=== PATIENT | male | born 1990 | race Caucasian/White ===

== ENCOUNTER 2021-02-03 20:39 | Inpatient (IN) | payer BC, OTHER ==
--- NOTE | 2021-02-03 21:28 | ED ---
General Adult HPI - General Source: police Mode of arrival: ambulatory Limitations: no limitations <Zeeshan Sims - Last Filed: 02/03/21 21:28> - General Source: RN notes reviewed, old records reviewed <Rehan Tripp - Last Filed: 02/04/21 04:05> - General Chief complaint: Psychiatric Symptoms Stated complaint: Pickup Order Time Seen by Provider: 02/03/21 21:05 - History of Present Illness Initial comments: Dictation was produced using [employer] dictation software. please excuse any grammatical, word or spelling errors. Chief Complaint: 31-year-old male brought in for apple picker order History of Present Illness: 31-year-old male he was brought to the emergency department for apple picker order. According to apple picker order patient has been showing signs of psychosis and not taking his medications as prescribed. Patient denies any of this. He states that his parents have been throwing with his medications. Denies any suicidal or homicidal ideation. Patient has no complaints at this time. The ROS documented in this emergency department record has been reviewed and confirmed by me. Those systems with pertinent positive or negative responses have been documented in the HPI. All other systems are other negative and/or noncontributory. PHYSICAL EXAM: General Impression: Alert and oriented x3, not in acute distress HEENT: Normocephalic atraumatic, extra-ocular movements intact, pupils equal and reactive to light bilaterally, mucous membranes moist. Cardiovascular: Heart regular rate and rhythm Chest: Able to complete full sentences, no retractions, no tachypnea Abdomen: abdomen soft, non-tender, non-distended, no organomegaly Musculoskeletal: Pulses present and equal in all extremities, no peripheral edema Motor: no focal deficits noted Neurological: CN II-XII grossly intact, no focal motor or sensory deficits noted Skin: Intact with no visualized rashes Psych: Normal affect and mood ED course: 31-year-old male presents to the emergency department for apple picker order signs upon arrival are within acceptable limits. Patient is well- appearing. He is pleasant has no medical complaints. Patient medically cleared for EPS evaluation. (Zeeshan Sims) - Related Data Allergies Allergy/AdvReac Type Severity Reaction Status Date / Time No Known Allergies Allergy Verified 02/03/21 22:04 Review of Systems ROS Other: All systems not noted in ROS Statement are negative. <BethanyVanessamai Pittman - Last Filed: 02/03/21 21:28> ROS Other: All systems not noted in ROS Statement are negative. <Rehan Tripp - Last Filed: 02/04/21 04:05> ROS Statement: Those systems with pertinent positive or pertinent negative responses have been documented in the HPI. Past Medical History Past Medical History: No Reported History History of Any Multi-Drug Resistant Organisms: MRSA Date of last positivie culture/infection: 01/29/2010 MDRO Source:: abd Past Surgical History: Back Surgery Past Psychological History: ADD/ADHD Smoking Status: Current every day smoker Past Alcohol Use History: Occasional Past Drug Use History: Marijuana <BethanyVanessamai Pittman - Last Filed: 02/03/21 21:28> General Exam Limitations: no limitations <BethanyVanessamai Pittman - Last Filed: 02/03/21 21:28> General appearance: alert, in no apparent distress, anxious Head exam: Present: atraumatic, normocephalic, normal inspection Eye exam: Present: normal appearance, PERRL, EOMI. Absent: scleral icterus, conjunctival injection, periorbital swelling ENT exam: Present: normal exam, mucous membranes moist Neck exam: Present: normal inspection. Absent: tenderness, meningismus, lymphadenopathy Respiratory exam: Present: normal lung sounds bilaterally. Absent: respiratory distress, wheezes, rales, rhonchi, stridor Cardiovascular Exam: Present: normal rhythm, tachycardia, normal heart sounds. Absent: systolic murmur, diastolic murmur, rubs, gallop, clicks GI/Abdominal exam: Present: soft, normal bowel sounds. Absent: distended, tenderness, guarding, rebound, rigid Extremities exam: Present: normal inspection, full ROM, normal capillary refill. Absent: tenderness, pedal edema, joint swelling, calf tenderness Back exam: Present: normal inspection Neurological exam: Present: alert, oriented X3, CN II-XII intact Psychiatric exam: Present: normal affect, normal mood Skin exam: Present: warm, dry, intact, normal color. Absent: rash <Rehan Tripp - Last Filed: 02/04/21 04:05> Course <Rehan Tripp - Last Filed: 02/04/21 04:05> Vital Signs 02/03/21 20:44 Temperature 99.1 F Pulse Rate 103 H Respiratory 18 Rate Blood Pressure 143/84 O2 Sat by Pulse 98 Oximetry - Reevaluation(s) Reevaluation #1: 02/04/21 04:05 Medical records reviewed (Rehan Tripp) Reevaluation #2: 02/04/21 04:05 Medically clear for psychiatric evaluation (Rehan Tripp) Reevaluation #3: 02/04/21 04:05 Meets inpatient criteria certification is filled out (Rehan Tripp) Medical Decision Making <Rehan Tripp - Last Filed: 02/04/21 04:05> - Medical Decision Making 31 male to be admitted for psychiatric evaluation and treatment (Rehan Tripp) Disposition <Zeeshan Sims - Last Filed: 02/03/21 21:28> Is patient prescribed a controlled substance at d/c from ED?: No <Rehan Tripp - Last Filed: 02/04/21 04:05> Clinical Impression: Acute psychosis Disposition: ADMITTED IP TO THIS HOSP Condition: Fair Referrals: Nonstaff,Physician [Primary Care Provider] - 1-2 days
[2021-02-03] MEDS ORDERED: IBUPROFEN 800 MG TAB PO STA (22:54)
[2021-02-04] MEDS ORDERED: LORazepam 1 MG TAB PO STA (03:03)
[2021-02-04] MEDS ORDERED: QUEtiapine 50 MG TAB PO STA (03:03)
[2021-02-04] MEDS ORDERED: HYDROcodone/APAP 7.5-325MG 1 EACH TAB PO ONE (04:16)
[2021-02-04] MEDS ORDERED: MAG HYDROX/AL HYDROX/SIMETH 30 ML CUP PO PRN (04:41)
[2021-02-04] MEDS ORDERED: MAGNESIUM HYDROXIDE 2,400 MG/10 ML CUP PO PRN (04:41)
[2021-02-04] MEDS ORDERED: LORazepam 2 MG/ML INJ IM PRN (04:45)
[2021-02-04] MEDS ORDERED: HALOPERIDOL LACTATE 5 MG/ML 1 ML VIAL IM PRN (04:46)
[2021-02-04 05:35] VITALS: RESP 16
[2021-02-04] MEDS: NICOTINE 14MG/24HR PATCH TRANSDERM SCH (09:57)
[2021-02-04] MEDS: LORazepam 1 MG TAB PO PRN ×2 (09:58→19:25)
[2021-02-04] MEDS: ACETAMINOPHEN TAB 325 MG TAB PO PRN ×2 (09:58→22:22)
[2021-02-04 10:06] LABS: Basophils # (A) 0.1 k/uL (0-0.2); Basophils % (A) 1 %; Eosinophils # (A) 0.3 k/uL (0-0.7); Eosinophils % (A) 3 %; HCT 45.1 % (39.0-53.0); HGB 14.7 gm/dL (13.0-17.5); Lymphocytes # (A) 3.2 k/uL (1.0-4.8); Lymphocytes % (A) 32 %; MCH 28.3 pg (25.0-35.0); MCHC 32.7 g/dL (31.0-37.0); MCV 86.6 fL (80.0-100.0); Monocytes # (A) 0.6 k/uL (0-1.0); Monocytes % (A) 6 %; Neutrophils # (A) 5.8 k/uL (1.3-7.7); Neutrophils % (A) 57 %; Platelet Count 330 k/uL (150-450); RBC 5.21 m/uL (4.30-5.90); RDW 13.2 % (11.5-15.5)
[2021-02-04 10:28] LABS: ALT 36 U/L (4-49); AST 39 U/L (17-59); African American GFR (CKD) >90 (>60 ml/min/1.73 sqM); Albumin 4.2 g/dL (3.5-5.0); Alkaline Phosphatase 68 U/L (38-126); Anion Gap 7 mmol/L; Blood Urea Nitrogen 9 mg/dL (9-20); Calcium 9.5 mg/dL (8.4-10.2); Carbon Dioxide 26 mmol/L (22-30); Chloride 107 mmol/L (98-107); Glucose 99 mg/dL (74-99); Non-African American GFR(CKD) >90 (>60 ml/min/1.73 sqM); Potassium 4.2 mmol/L (3.5-5.1); Sodium 140 mmol/L (137-145); Total Bilirubin 0.6 mg/dL (0.2-1.3); Total Protein 6.8 g/dL (6.3-8.2)
[2021-02-04] MEDS: ARIPiprazole 5 MG TAB PO SCH (14:46)
--- NOTE | 2021-02-04 15:04 | P.HPMEDMHU ---
<Ramsey Lemus - Last Filed: 02/04/21 14:58> History of Present Illness H&P Date: 02/04/21 History of Presenting Illness: Patient is a 31-year-old male with a past medical history of nicotine dependence, chronic back pain, ADHD, depression, and anxiety. Patient currently admitted to inpatient mental health unit for reports of exhibiting signs of psychosis. Patient currently denies having any complaints at this time including headache, lightheadedness, dizziness, changes in vision or hearing, chest pain or palpitations, shortness of breath, abdominal pain, nausea, vomiting, changes in appetite, numbness/tingling/weakness in his extremities, visual/auditory/tactile hallucinations, or experiencing any suicidal or homicidal ideations. Review of systems: Pertinent positives and negatives as discussed in HPI, a complete review of systems was performed and all other systems are negative. Physical exam: General: non toxic, no distress, appears at stated age Derm: warm, dry Head: atraumatic, normocephalic, symmetric Eyes: EOMI, no lid lag, anicteric sclera Mouth: no lip lesion, mucus membranes moist Cardiovascular: S1-S2 normal with regular rate and rhythm. No murmurs, gallops, or rubs noted. Posterior tibial pulses palpated bilaterally. Cap refill less than 2 seconds. Lungs: Respirations even, regular, and unlabored on room air. Lungs clear to auscultation bilaterally with no wheezes, rhonchi, or rales noted. No accessory muscle usage. Abdominal: soft, nontender to palpation, no guarding, no appreciable organomegaly Ext: no gross muscle atrophy, no edema, no contractures Neuro: GCS 15. Speech clear. CN II-XI grossly intact, no focal neuro deficits Psych: Alert, oriented, appropriate affect Assessment and Plan of Care: Chronic back pain with sciatica status post lumbar surgery -Symptomatic care and pain management. Motrin and/or Tylenol as needed for mild pain/discomfort. Nicotine dependence -Patient reports long-standing history of and current use of tobacco products reportedly smoking one pack of cigarettes daily 13 years. -Patient to continue to receive education and encouragement on the importance of smoking cessation and risks of continued use. -Nicotine patch. Psychosis with history of ADHD, depression, and anxiety -Management per primary admitting psychiatric team. Thank you for allowing us to participate in the care of this pleasant patient. Do not hesitate to contact us with questions. Someone can be reached from the [facility] hospitalist group all hours of the day at [phone] or via [employer]. Past Medical History Past Medical History: No Reported History History of Any Multi-Drug Resistant Organisms: MRSA Date of last positivie culture/infection: 01/29/2010 MDRO Source:: abd Past Surgical History: Back Surgery Smoking Status: Current every day smoker Medications and Allergies Home Medications Medication Instructions Recorded Confirmed Type Buprenorphine HCl/Naloxone HCl 0.5 film SL DAILY 02/03/21 02/04/21 History [Suboxone 8 mg-2 mg Sl Film] Dextroamphetamine/Amphetamine 30 mg PO DAILY 02/03/21 02/04/21 History [Adderall Xr] FLUoxetine HCL [PROzac] 20 mg PO DAILY 02/03/21 02/04/21 History QUEtiapine FUMARATE [SEROquel] 50 mg PO HS 02/03/21 02/04/21 History Allergies Allergy/AdvReac Type Severity Reaction Status Date / Time No Known Allergies Allergy Verified 02/04/21 05:32 Physical Exam Vitals: Vital Signs Temp Pulse Pulse Resp BP BP Pulse Ox 02/04/21 05:26 97.9 F 83 16 141/101 02/03/21 20:44 99.1 F 103 H 18 143/84 98 Intake and Output 02/03/21 02/04/21 02/04/21 22:59 06:59 14:59 Other: Weight 108.862 kg 110.677 kg Cranial Nerve Examination - Cranial Nerves Cranial Nerve II- Optic: Intact Cranial Nerve III- Oculomotor: Intact Cranial Nerve IV- Trochlear: Intact Cranial Nerve V- Trigeminal: Intact Cranial Nerve - Abducens: Intact Cranial Nerve VII- Facial: Intact Cranial Nerve VIII- Auditory: Intact Cranial Nerve IX- Glossopharyngeal: Intact Cranial Nerve X- Vagus: Intact Cranial Nerve XI- Accessory: Intact Cranial Nerve XII- Hypoglossal: Intact Results CBC & Chem 7: 02/04/21 09:32 02/04/21 09:32 <Meseret Salas - Last Filed: 02/04/21 17:10> History of Present Illness Ramsey Lemus NP rendered care for this patient independently, reviewed the findings and plan as documented in the note above. I did not physically speak with or examine the patient on this date. Physical Exam Osteopathic Statement: *. No significant issues noted on an osteopathic structural exam other than those noted in the History and Physical/Consult. Vitals: Vital Signs Temp Pulse Pulse Resp BP BP Pulse Ox 02/04/21 05:26 97.9 F 83 16 141/101 02/03/21 20:44 99.1 F 103 H 18 143/84 98 Intake and Output 02/04/21 02/04/21 02/04/21 06:59 14:59 22:59 Other: Weight 110.677 kg Results CBC & Chem 7: 02/04/21 09:32 02/04/21 09:32
--- NOTE | 2021-02-04 15:15 | P.HP ---
Psychiatric H&P - . H&P Date: 02/04/21 History & Physical: Allergies Allergy/AdvReac Type Severity Reaction Status Date / Time No Known Allergies Allergy Verified 02/04/21 05:32 Vital Signs Temp 97.9 F 02/04/21 05:26 Pulse 83 02/04/21 05:26 Resp 16 02/04/21 05:26 BP 141/101 02/04/21 05:26 Pulse Ox 98 02/03/21 20:44 Intake & Output 02/03/21 02/04/21 02/04/21 18:59 06:59 18:59 Weight 110.677 kg Laboratory Last Values WBC 10.0 k/uL (3.8-10.6) 02/04/21 09:32 RBC 5.21 m/uL (4.30-5.90) 02/04/21 09:32 Hgb 14.7 gm/dL (13.0-17.5) 02/04/21 09:32 Hct 45.1 % (39.0-53.0) 02/04/21 09:32 MCV 86.6 fL (80.0-100.0) 02/04/21 09:32 MCH 28.3 pg (25.0-35.0) 02/04/21 09:32 MCHC 32.7 g/dL (31.0-37.0) 02/04/21 09:32 RDW 13.2 % (11.5-15.5) 02/04/21 09:32 Plt Count 330 k/uL (150-450) 02/04/21 09:32 MPV 7.0 02/04/21 09:32 Neutrophils % 57 % 02/04/21 09:32 Lymphocytes % 32 % 02/04/21 09:32 Monocytes % 6 % 02/04/21 09:32 Eosinophils % 3 % 02/04/21 09:32 Basophils % 1 % 02/04/21 09:32 Neutrophils # 5.8 k/uL (1.3-7.7) 02/04/21 09:32 Lymphocytes # 3.2 k/uL (1.0-4.8) 02/04/21 09:32 Monocytes # 0.6 k/uL (0-1.0) 02/04/21 09:32 Eosinophils # 0.3 k/uL (0-0.7) 02/04/21 09:32 Basophils # 0.1 k/uL (0-0.2) 02/04/21 09:32 Sodium 140 mmol/L (137-145) 02/04/21 09:32 Potassium 4.2 mmol/L (3.5-5.1) 02/04/21 09:32 Chloride 107 mmol/L (98-107) 02/04/21 09:32 Carbon Dioxide 26 mmol/L (22-30) 02/04/21 09:32 Anion Gap 7 mmol/L 02/04/21 09:32 BUN 9 mg/dL (9-20) 02/04/21 09:32 Creatinine 0.86 mg/dL (0.66-1.25) 02/04/21 09:32 Est GFR (CKD-EPI)AfAm >90 (>60 ml/min/1.73 sqM) 02/04/21 09:32 Est GFR (CKD-EPI)NonAf >90 (>60 ml/min/1.73 sqM) 02/04/21 09:32 Glucose 99 mg/dL (74-99) 02/04/21 09:32 Calcium 9.5 mg/dL (8.4-10.2) 02/04/21 09:32 Total Bilirubin 0.6 mg/dL (0.2-1.3) 02/04/21 09:32 AST 39 U/L (17-59) 02/04/21 09:32 ALT 36 U/L (4-49) 02/04/21 09:32 Alkaline Phosphatase 68 U/L (38-126) 02/04/21 09:32 Total Protein 6.8 g/dL (6.3-8.2) 02/04/21 09:32 Albumin 4.2 g/dL (3.5-5.0) 02/04/21 09:32 TSH 3.130 mIU/L (0.465-4.680) 02/04/21 09:32 Coronavirus (PCR) Not Detected (Not Detectd) 02/04/21 03:05 02/04/21 14:54 IDENTIFYING DATA: Patient is a 31-year-old male who currently lives with his parents however is and his and him are and she lives in [place]. They have no kids together. HPI: Patient presented to the hospital yesterday on a petition by patient's parents were claiming the patient has been paranoid and not taking his bipolar medications and also has kicked his aren't of their house and also has been recently fired from his job. Patient was admitted involuntarily on petition and certification to the mental health unit and seen today for evaluation. Patient appeared to be calm at first during the interview however spoke of his parents "believing that I'm crazy". He states that he was feeling paranoid at home and believes that "people watching house". He claims that now he is doing better overall and claims that he slept better last night. He states that he can go several nights without sleeping and has been trying to work hard on his projects at home and to get his [employer] business working. He states that he is taking Adderall daily for his ADHD. He claims that he has had ADHD since age 16. He claims that he has had a history of manic episodes in the past. He believes that he is not bipolar unit he has been diagnosed this and that in the past. He claims that he was on Depakote for a while several months ago however stopped. His insight is fairly poor into his condition and poor judgment. He states that his appetite is poor. He claims that he has had "visions" however is denying any auditory or visual hallucinations. He states that his mood is "good" and denying any depression today. He admits to mild anxiety. Patient denies any suicidal or homicidal ideations intent or plan. Patient denies any flight of ideas racing thoughts and increased in goal directed behavior. Patient admits to using alcohol occasionally, marijuana daily. He states that he smokes cigarettes daily. PAST PSYCHIATRIC HISTORY: Patient has a history of ADHD and bipolar disorder. [Patient denies being on any psychiatric medications currently except for Adderall for his ADHD.] [Patient denies any previous psychiatric hospitalizations.] He states that he used to see a psychiatrist Dr. Orourke however he claims that he has not been following up with him any longer. [Chino howard denies any history of suicide attempts in the past.] PMH: He claims that he has had back surgery in the past. ALLERGIES: as per EMR CHEMICAL DEPENDENCY HISTORY: as per HPI FAMILY PSYCHIATRIC/SUBSTANCE USE HISTORY: He states that his grandmother has bipolar disorder. He claims that his father has depression. SOCIAL HISTORY: Patient was born and raised in [place] and also lived in [place]. He claims that he is currently from his who lives in [place]. He states that he currently lives with his parents in the house. He states that he has no kids. He claims that he has no legal history. He has 2 years of college after high school. MENTAL STATUS EXAM: General Appearance: Patient appears to be tall, multiple tattoos, stated age is alert, [directable, and attempts to cooperate]. Patient appears to have fair hygiene and grooming. Behavior: Patient is seated without any agitated behavior. Superficial. Argumentative at times. Speech: Patient's speech is [fluent and nonpressured.] Mood/Affect: Patient reports their mood is "okay", affect is congruent and constricted. Suicidality/Homicidality: Patient denies having any homicidal ideation intent or plan. [Denies any suicidal ideations intent or plan] Perceptions: Patient denies any visual hallucinations [and denies any auditory hallucinations] Though content/process: Minimizes his psychiatric symptoms. Poor insight and judgment. Illogical at times. Paranoia. Memory and concentration: AOX3, grossly intact for the purposes of this session. Can spell "WORLD" backwards Judgment and insight: [poor] STRENGTHS/WEAKNESSES: strength is that patient is [resilient]. Weakness is that patient [has poor judgment and is impulsive] INTELLECT: [average] IMPRESSIONS: Bipolar disorder with psychotic features Cannabis use disorder History of ADHD Nicotine dependence PLAN: -Patient is admitted under involuntary status to MHU for stabilization of psychiatric symptoms and safety. Patient has not signed [adult voluntary form and] [medication consent] and is placed in patient's chart. [A second certification was completed and along with petition will be filed for court.] -Medications : Will start patient on Abilify 2.5 mg daily for mood stabilization. Trazodone 50 mg daily at bedtime for insomnia/mood. BuSpar 10 mg twice a day for anxiety. -Ativan [and Haldol] PRN for agitation/aggression [-Patient was counselled on substance abuse and desired to cut back on use] -Patient was informed of the risks, benefits and side effects of the medication and patient verbally consented to taking the medications. Patient signed med consent form and was placed in chart. -Internal Medicine consult to perform medical evaluation and physical. -NRT - nicotine patch -SW on board for discharge planning. Encourage patient to participate in groups to work on coping skills. Will await deferral and court date.
[2021-02-04] MEDS: IBUPROFEN 800 MG TAB PO PRN (19:22)
[2021-02-04 19:39] LABS: Hemoglobin A1C 5.5 % (4.0-6.0)
[2021-02-04] MEDS ORDERED: traZODone HCL 50 MG TAB PO SCH (21:00)
[2021-02-04] MEDS ORDERED: QUEtiapine 25 MG TAB PO SCH (21:00)
[2021-02-04] MEDS: busPIRone HCl 10 MG TAB PO SCH (21:08)
[2021-02-05] MEDS: IBUPROFEN 800 MG TAB PO PRN ×2 (05:25→18:18)
[2021-02-05] MEDS: LORazepam 1 MG TAB PO PRN ×3 (05:25→21:40)
[2021-02-05] MEDS: NICOTINE 14MG/24HR PATCH TRANSDERM SCH (07:51)
[2021-02-05] MEDS: ARIPiprazole 5 MG TAB PO SCH (07:51)
[2021-02-05] MEDS: busPIRone HCl 10 MG TAB PO SCH ×2 (07:51→20:03)
[2021-02-05] MEDS ORDERED: IBUPROFEN 600 MG TAB PO PRN (10:31)
--- NOTE | 2021-02-05 10:35 | P.PN ---
Progress Note - Text Progress Note Date: 02/05/21 Interval History: Patient was seen wandering the hallways and was directable and agreeable to sp eak with health science writer in the office. Patient appears to be more cooperative today with health science writer. He was fairly appropriately during conversation. He was fairly preoccupied with his medications and asked several questions about it. She believes that the Abilify has been helping with his mood and keeping stable and claims that he will be taking it when he is discharged. He states that he is not feeling depressed today and claims that his anxiety is improved since yesterday. He states that he was not able to sleep well on the trazodone and was requesting to have it changed. He states that he was on Benadryl before for sleep and found it to work. He was complaining of pain and was requesting to be placed back on [place]. He states that he has a fair appetite. At this time patient denies any suicidal or homical ideations, intent or plan. Patient denies any auditory, visual hallucinations and denies any paranoia or delusions. Patient denies any side effects from the medications and has been compliant with meds. Mental Status Exam: General Appearance: Patient appears to be tall, multiple tattoos, stated age is alert, directable, and attempts to cooperate. Patient appears to have fair hy giene and grooming. Behavior: Patient is seated without any agitated behavior. More cooperative today Speech: Patient's speech is fluent and nonpressured. Mood/Affect: Patient reports their mood is "a bit better", affect is congruent and constricted. Suicidality/Homicidality: Patient denies having any homicidal ideation intent or plan. Denies any suicidal ideations intent or plan Perceptions: Patient denies any visual hallucinations and denies any auditory hallucinations Though content/process: Insight improving. More logical today. Not endorsing any paranoia today. Memory and concentration: AOX3, grossly intact for the purposes of this session. Judgment and insight: improving mildly Assessment Bipolar disorder with psychotic features Cannabis use disorder History of ADHD Nicotine dependence Plan: -Patient continues to meet criteria for inpatient psychiatric admission for symptom stabilization and safety. Patient has not signed adult voluntary form and was placed in patient's chart. -Medications: Increased Abilify to 5 mg for mood stabilization. Discontinue trazodone and replaced with Benadryl 50 mg daily at bedtime for insomnia. Continue with BuSpar 10 mg twice a day for anxiety. -When necessary Ativan and Haldol for agitation/aggression. -NRT - nicotine patch -BASHIR on board for discharge planning. Encouraged the patient to participate in milieu. Currently awaiting deferral with workers compensation attorney and court date. Likely discharge once patient signs deferral
[2021-02-05] MEDS: HYDROcodone/APAP 7.5-325MG 1 EACH TAB PO PRN (11:05)
[2021-02-05] MEDS: ACETAMINOPHEN TAB 325 MG TAB PO PRN (20:04)
[2021-02-05] MEDS ORDERED: QUEtiapine 50 MG TAB PO SCH (21:00)
[2021-02-05] MEDS ORDERED: diphenhydrAMINE 50 MG CAP PO SCH (21:00)
[2021-02-06] MEDS: IBUPROFEN 800 MG TAB PO PRN ×2 (00:38→06:45)
[2021-02-06 01:06] VITALS: BP 129/74; PULSE 84; TEMP 96.8
[2021-02-06] MEDS: LORazepam 1 MG TAB PO PRN (06:45)
[2021-02-06] MEDS: NICOTINE 14MG/24HR PATCH TRANSDERM SCH (08:22)
[2021-02-06] MEDS: HYDROcodone/APAP 7.5-325MG 1 EACH TAB PO PRN (08:23)
[2021-02-06] MEDS: busPIRone HCl 10 MG TAB PO SCH (08:23)
[2021-02-06] MEDS ORDERED: ARIPiprazole 5 MG TAB PO SCH (09:00)
--- NOTE | 2021-02-06 09:42 | P.DS ---
Providers Date of admission: 02/04/21 04:36 Expected date of discharge: 02/06/21 Attending physician: Anson Stokes MD Consults: 02/04/21 04:41 Consult Physician Routine Consulting Provider: [facility] Consult Reason/Comments: For H & P for Medical Follow Up Do you want consulting provider notified?: Yes Primary care physician: Physician Nonstaff - Discharge Diagnosis(es) (1) Bipolar disorder with psychotic features Current Visit: Yes Status: Acute Priority: High (2) Cannabis use disorder, mild, abuse Current Visit: Yes Status: Acute Priority: Medium (3) History of ADHD Current Visit: Yes Status: Acute Priority: Low (4) Nicotine dependence Current Visit: Yes Status: Acute Priority: Medium Hospital Course: Admission HPI: Admission note was completed by card writer hand " Patient is a 31-year-old male who currently lives with his parents however is and his and him are and she lives in [place]. They have no kids together. Patient presented to the hospital yesterday on a petition by patient's parents were claiming the patient has been paranoid and not taking his bipolar medications and also has kicked his aren't of their house and also has been recently fired from his job. Patient was admitted involuntarily on petition and certification to the mental health unit and seen today for evaluation. Patient appeared to be calm at first during the interview however spoke of his parents "believing that I'm crazy". He states that he was feeling paranoid at home and believes that "people watching house". He claims that now he is doing better overall and claims that he slept better last night. He states that he can go several nights without sleeping and has been trying to work hard on his projects at home and to get his [employer] business working. He states that he is taking Adderall daily for his ADHD. He claims that he has had ADHD since age 16. He claims that he has had a history of manic episodes in the past. He believes that he is not bipolar unit he has been diagnosed this and that in the past. He claims that he was on Depakote for a while several months ago however stopped. His insight is fairly poor into his condition and poor judgment. He states that his appetite is poor. He claims that he has had "visions" however is denying any auditory or visual hallucinations. He states that his mood is "good" and denying any depression today. He admits to mild anxiety. Patient denies any suicidal or homicidal ideations intent or plan. Patient denies any flight of ideas racing thoughts and increased in goal directed behavior. Patient admits to using alcohol occasionally, marijuana daily. He states that he smokes cigarettes daily." Hospital course: Upon admission to the unit patient was initially bizarre, paranoid and irritable at times. 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 Patient got along well with other patients on the unit and followed unit protocol. Patient was compliant with the medications and denied any side effects throughout hospital course. Patient was started on Abilify and titrated up to dose of 5 mg daily for mood stabilization. Patient was also started on Benadryl 50 mg daily at bedtime for insomnia and BuSpar 15 mg twice a day for anxiety. Patient was also started on Remeron 15 mg daily at bedtime for insomnia/mood. Patient spoke of his stressors and engaged in therapy both group and individual. Patient was also seen by medical team for history and physical exam. Throughout the course of the hospitalization patient gradually improved with regards to mood lability, anxiety, psychosis, sleep and became more future oriented with improved insight and judgment. Youth Pastor spoke with patient and patient's father over the phone about the importance of medication compliance for his psychiatric medications and answered questions with regards to Adderall and other psychostimulants that patient was self- medicating for his ADHD and the risks that this posed on possibly triggering a psychotic or manic episode. On the day of discharge patient denied any suicidal or homicidal ideations intent or plan denied any auditory or visual hallucinations. Patient endorsed wanting to live for his health and family. The patient denied any access to guns or weapons. Patient denied any paranoia and did not endorse any delusions. Patient does have a significant history of substance abuse and was counseled on abstaining from all substances including alcohol and marijuana. Patient was also counseled on the medications and need for regular compliance and was encouraged to follow-up with their outpatient appointment for mental health and also for primary care. Prior to discharge a family meeting will be arranged by social science instructor to answer any questions and ensure safety upon discharge. Patient and patient's father claims that the guns in the house are locked away in a safe and all other weapons are removed from the house. Mental status exam: General Appearance: Patient appears to be tall, stated age is alert, pleasant, and cooperative. Patient is in no acute distress and has improved hygiene and grooming Behavior: Patient is calmly seated without any agitated behavior. Speech: Patient's speech is fluent and nonpressured. Mood/Affect: Patient reports their mood is "better", affect is congruent and euthymic. Suicidality/Homicidality: Patient denies having any suicidal or homicidal ideation intent or plan. Perceptions: Patient denies any auditory or visual hallucinations. Though content/process: There is no evidence of any delusional thought content and thought process is linear and goal-directed. more future oriented Memory and concentration: AOX3, grossly intact for the purposes of this session. Can spell "WORLD" backwards correctly. Judgment and insight: chronically poor, however has improved with guarded prognosis Impression: Bipolar disorder with psychotic features Cannabis use disorder History of ADHD Nicotine dependence Plan: -Continue with discharge today as patient has improved and stabilized psychiatrically and is not currently an imminent threat to himself and/or others. Patient will remain at chronically elevated risk for harm to self and/or others due to his impulsivity. -Continue medications: Continue Abilify 5 mg daily for mood stabilization. Spoke with patient about the possibility of long-acting injection and he claims that he will like to think about it and speak with his outpatient psychiatrist. Benadryl 50 mg daily at bedtime for insomnia, BuSpar 15 mg twice a day for anxiety, Remeron 15 mg daily at bedtime for insomnia/mood. -Patient was counseled on the need for medication compliance and appropriate follow-up at mental health and also primary care for medical issues. Patient verbalized understanding and agreed. -Social work to arrange for and conduct family meeting to ensure safety upon discharge and answer any questions/concerns. Social work also to arrange for patients follow up appointments for psychiatric care along with follow up with primary care provider. -Patient counseled on abstaining from recreational drugs and marijuana and alcohol. Was informed/educated on the adverse effects on their physical and mental health. Patient verbally agreed and understood. -Patient was instructed to return to the hospital or seek immediate medical care if their psychiatric or medical symptoms do worsen or reoccur. Allergies Allergy/AdvReac Type Severity Reaction Status Date / Time No Known Allergies Allergy Verified 02/04/21 05:32 Laboratory Results WBC 10.0 k/uL (3.8-10.6) 02/04/21 09:32 RBC 5.21 m/uL (4.30-5.90) 02/04/21 09:32 Hgb 14.7 gm/dL (13.0-17.5) 02/04/21 09:32 Hct 45.1 % (39.0-53.0) 02/04/21 09:32 MCV 86.6 fL (80.0-100.0) 02/04/21 09:32 MCH 28.3 pg (25.0-35.0) 02/04/21 09:32 MCHC 32.7 g/dL (31.0-37.0) 02/04/21 09:32 RDW 13.2 % (11.5-15.5) 02/04/21 09:32 Plt Count 330 k/uL (150-450) 02/04/21 09:32 MPV 7.0 02/04/21 09:32 Neutrophils % 57 % 02/04/21 09:32 Lymphocytes % 32 % 02/04/21 09:32 Monocytes % 6 % 02/04/21 09:32 Eosinophils % 3 % 02/04/21 09:32 Basophils % 1 % 02/04/21 09:32 Neutrophils # 5.8 k/uL (1.3-7.7) 02/04/21 09:32 Lymphocytes # 3.2 k/uL (1.0-4.8) 02/04/21 09:32 Monocytes # 0.6 k/uL (0-1.0) 02/04/21 09:32 Eosinophils # 0.3 k/uL (0-0.7) 02/04/21 09:32 Basophils # 0.1 k/uL (0-0.2) 02/04/21 09:32 Sodium 140 mmol/L (137-145) 02/04/21 09:32 Potassium 4.2 mmol/L (3.5-5.1) 02/04/21 09:32 Chloride 107 mmol/L (98-107) 02/04/21 09:32 Carbon Dioxide 26 mmol/L (22-30) 02/04/21 09:32 Anion Gap 7 mmol/L 02/04/21 09:32 BUN 9 mg/dL (9-20) 02/04/21 09:32 Creatinine 0.86 mg/dL (0.66-1.25) 02/04/21 09:32 Est GFR (CKD-EPI)AfAm >90 (>60 ml/min/1.73 sqM) 02/04/21 09:32 Est GFR (CKD-EPI)NonAf >90 (>60 ml/min/1.73 sqM) 02/04/21 09:32 Glucose 99 mg/dL (74-99) 02/04/21 09:[address] Glu mg/dL 111 02/04/21 09:32 Hemoglobin A1c 5.5 % (4.0-6.0) 02/04/21 09:32 Calcium 9.5 mg/dL (8.4-10.2) 02/04/21 09:32 Total Bilirubin 0.6 mg/dL (0.2-1.3) 02/04/21 09:32 AST 39 U/L (17-59) 02/04/21 09:32 ALT 36 U/L (4-49) 02/04/21 09:32 Alkaline Phosphatase 68 U/L (38-126) 02/04/21 09:32 Total Protein 6.8 g/dL (6.3-8.2) 02/04/21 09:32 Albumin 4.2 g/dL (3.5-5.0) 02/04/21 09:32 TSH 3.130 mIU/L (0.465-4.680) 02/04/21 09:32 Coronavirus (PCR) Not Detected (Not Detectd) 02/04/21 03:05 Vital Signs Temp 96.8 F L 02/06/21 00:38 Pulse 84 02/06/21 00:38 Resp 16 02/06/21 00:38 BP 129/74 02/06/21 00:38 Pulse Ox 98 02/03/21 20:44 Patient Condition at Discharge: Stable Plan - Discharge Summary New Discharge Prescriptions: New RX: Mirtazapine [Remeron] 15 mg PO HS 30 Days tab RX: ARIPiprazole [Abilify] 5 mg PO DAILY 30 Days tab RX: diphenhydrAMINE [Benadryl] 50 mg PO HS 30 Days cap RX: busPIRone HCl [Buspar] 15 mg PO BID 30 Days tab RX: Nicotine 14Mg/24Hr Patch [Habitrol] 1 patch TRANSDERM DAILY 14 Days patch Continue RX: Buprenorphine HCl/Naloxone HCl [Suboxone 8 mg-2 mg Sl Film] 0.5 film SL DAILY Discontinued FLUoxetine HCL [PROzac] 20 mg PO DAILY Dextroamphetamine/Amphetamine [Adderall Xr] 30 mg PO DAILY QUEtiapine FUMARATE [SEROquel] 50 mg PO HS Discharge Medication List RX: Buprenorphine HCl/Naloxone HCl [Suboxone 8 mg-2 mg Sl Film] 0.5 film SL DAILY 02/03/21 [History] RX: ARIPiprazole [Abilify] 5 mg PO DAILY 30 Days tab 02/06/21 [Rx] RX: Mirtazapine [Remeron] 15 mg PO HS 30 Days tab 02/06/21 [Rx] RX: Nicotine 14Mg/24Hr Patch [Habitrol] 1 patch TRANSDERM DAILY 14 Days patch 02/06/21 [Rx] RX: busPIRone HCl [Buspar] 15 mg PO BID 30 Days tab 02/06/21 [Rx] RX: diphenhydrAMINE [Benadryl] 50 mg PO HS 30 Days cap 02/06/21 [Rx] Follow up Appointment(s)/Referral(s): Nonstaff,Physician [Primary Care Provider] - 1-2 days Patient Instructions/Handouts: How to Stop Smoking (DC), ADHD in Adults (DC), Bipolar Disorder (DC), Cannabis Abuse (DC), Psychotic Disorder (GEN) Activity/Diet/Wound Care/Special Instructions: Activity and diet as tolerated. Avoid the use of street drugs and alcohol. Take all medications as prescribed. When you are in need of refills on your medications please contact your medical provider and/or outpatient psychiatrist to have this done. Please go to scheduled outpatient appointment for aftercare treatment. If symptoms return or become worse, call the crisis line at and/or go to the nearest emergency room for evaluation. Discharge Disposition: HOME SELF-CARE
[2021-02-06] MEDS ORDERED: busPIRone HCl 5 MG TAB PO SCH (21:00)
[2021-02-06] MEDS ORDERED: MIRTAZAPINE 15 MG TAB PO SCH (21:00)
== END 2021-02-06 13:14 | disposition home or self-care (01) | DRG 885 ==
LOC: EC 20:39 → 3MHU 02-04 04:36
PROVIDERS: ADMIT Psychiatry & Neurology Psychiatry; ATTEND Psychiatry & Neurology Psychiatry
DX: F31.9 Bipolar disorder, unspecified (principal); F23 Brief psychotic disorder; F17.210 Nicotine dependence, cigarettes, uncomplicated; F12.10 Cannabis abuse, uncomplicated; F41.9 Anxiety disorder, unspecified; F90.9 Attention-deficit hyperactivity disorder, unspecified type; G47.00 Insomnia, unspecified; Z79.899 Other long term (current) drug therapy; Z81.8 Family history of other mental and behavioral disorders; Z20.822 Contact with and (suspected) exposure to COVID-19
CPT/HCPCS: 80053; 82075; 83036; 84443; 85025; 87635; 99285

== ENCOUNTER 2021-02-16 13:41 | Emergency (ER) | payer BC ==
[2021-02-16 14:08] VITALS: BP 133/79; TEMP 98.2
[2021-02-16] MEDS ORDERED: LORazepam 1 MG TAB PO STA (15:39)
[2021-02-16] MEDS ORDERED: ACET/COD 300 MG/30 MG STARTER PACK 6 TAB BTL PO STA (15:39)
[2021-02-16] MEDS ORDERED: KETOROLAC 15 MG/ML 1 ML VIAL IM STA (15:39)
[2021-02-16] MEDS ORDERED: LIDOCAINE 5% PATCH TOPICAL STA (15:39)
--- NOTE | 2021-02-16 15:45 | ED ---
Back Pain HPI - General Chief Complaint: Back Pain/Injury Stated Complaint: Back Pain Time Seen by Provider: 02/16/21 15:25 Source: family Limitations: no limitations - History of Present Illness Initial Comments: 31-year-old male presents to emergency room with a chief complaint of back pain. Patient reports last year he underwent back surgery for a disc herniation lumbar spine. Patient reports during that time he was on Suboxone therapy for approximately 2 years. States about 1.5 weeks ago he stopped taking Suboxone and has now been experiencing lower back pain. He denies any significant radiation of the pain does seem to be exacerbated with ambulation bending and twisting of the spine. States he's also developed restless leg syndrome and has not been able to sleep over the last several days. He denies any injuries to the back. Denies any saddle anesthesia, urinary retention with overflow or bowel incontinence. Denies nausea vomiting diarrhea. - Related Data Home Medications Medication Instructions Recorded Confirmed Buprenorphine HCl/Naloxone HCl 0.5 film SL DAILY 02/03/21 02/04/21 [Suboxone 8 mg-2 mg Sl Film] Previous Rx's Medication Instructions Recorded ARIPiprazole [Abilify] 5 mg PO DAILY 30 Days tab 02/06/21 Mirtazapine [Remeron] 15 mg PO HS 30 Days tab 02/06/21 Nicotine 14Mg/24Hr Patch [Habitrol] 1 patch TRANSDERM DAILY 14 Days 02/06/21 patch busPIRone HCl [Buspar] 15 mg PO BID 30 Days tab 02/06/21 diphenhydrAMINE [Benadryl] 50 mg PO HS 30 Days cap 02/06/21 Allergies Allergy/AdvReac Type Severity Reaction Status Date / Time No Known Allergies Allergy Verified 02/16/21 14:06 Review of Systems ROS Statement: Those systems with pertinent positive or pertinent negative responses have been documented in the HPI. ROS Other: All systems not noted in ROS Statement are negative. Past Medical History Past Medical History: No Reported History History of Any Multi-Drug Resistant Organisms: MRSA Date of last positivie culture/infection: 01/29/2010 MDRO Source:: abd Past Surgical History: Back Surgery Past Psychological History: ADD/ADHD, Anxiety Smoking Status: Current every day smoker Past Alcohol Use History: None Reported Past Drug Use History: None Reported, Opiates General Exam Limitations: no limitations General appearance: alert, in no apparent distress, obese Head exam: Present: atraumatic, normocephalic, normal inspection Eye exam: Present: normal appearance, PERRL, EOMI Pupils: Present: normal accommodation ENT exam: Present: normal exam, normal oropharynx, mucous membranes moist Neck exam: Present: normal inspection, full ROM. Absent: tenderness, lymphadenopathy Respiratory exam: Present: normal lung sounds bilaterally. Absent: respiratory distress, wheezes, rales, rhonchi, stridor, chest wall tenderness, accessory muscle use Cardiovascular Exam: Present: regular rate, normal rhythm, normal heart sounds. Absent: systolic murmur, diastolic murmur GI/Abdominal exam: Present: soft. Absent: distended, tenderness, guarding, rebound Extremities exam: Present: normal inspection, full ROM, normal capillary refill. Absent: tenderness, pedal edema, joint swelling Back exam: Present: normal inspection, full ROM. Absent: tenderness, CVA tenderness (R), CVA tenderness (L), muscle spasm, paraspinal tenderness, vertebral tenderness Neurological exam: Present: alert, oriented X3 Psychiatric exam: Present: normal affect, normal mood Skin exam: Present: warm, dry, intact, normal color Course Vital Signs 02/16/21 14:06 Temperature 98.2 F Pulse Rate 96 Respiratory 16 Rate Blood Pressure 133/79 O2 Sat by Pulse 97 Oximetry Medical Decision Making - Medical Decision Making 31-year-old male presents to the emergency department with a chief complaint of back pain. On physical examination, lumbar lumbar tenderness. No concern for cauda equina at this time. Patient was given a Lidoderm patch, Toradol and Ativan to help with his restless leg syndrome. Patient will also be given obstruction for Tylenol 3. Advised to take the medication home. He is f ollowing up with psychiatrist tomorrow regarding the discontinuation of his Suboxone therapy. Strict return was withheld discussed the patient is an attending ago. Advised to follow-up with principal technical specialist. Case discussed with Dr. Nichols Disposition Clinical Impression: Mechanical back pain Disposition: HOME SELF-CARE Condition: Stable Instructions (If sedation given, give patient instructions): Acute Low Back Pain (ED) Additional Instructions: Please return to the Emergency Department if symptoms worsen or any other concerns. Is patient prescribed a controlled substance at d/c from ED?: No Referrals: Zurdo VeraDO [Primary Care Provider] - 1-2 days Time of Disposition: 15:45
[2021-02-16 16:02] VITALS: PULSE 85; RESP 18
== END 2021-02-16 16:02 | disposition home or self-care (01) ==
LOC: EC 13:41
DX: M54.5 Low back pain (principal); G25.81 Restless legs syndrome; F41.9 Anxiety disorder, unspecified; F17.200 Nicotine dependence, unspecified, uncomplicated; F09 Unspecified mental disorder due to known physiological condition
CPT/HCPCS: 96372; 99283

== ENCOUNTER 2021-03-10 13:20 | Emergency (ER) | payer BC ==
[2021-03-10 13:30] VITALS: BP 146/84; PULSE 94; RESP 18; TEMP 98.1
--- NOTE | 2021-03-10 13:57 | ED ---
General Adult HPI - General Chief complaint: Psychiatric Symptoms Stated complaint: Mental health Time Seen by Provider: 03/10/21 13:33 Source: patient, family Mode of arrival: ambulatory - History of Present Illness Initial comments: 31-year-old male with past medical history of back pain, bipolar disorder, ADHD who presents emergency Department with reported insomnia. Patient states that he has had a long-standing history of insomnia and has been on several medications because of this issue. He has taken Remeron, Seroquel, Benadryl, melatonin and Ativan for his symptoms at 1 point in time over states that the only thing that ever helped with Ativan. He longer has a medication prescription. He states that for the past 3 months his insomnia has been worsening and the patient has not gotten any sleep in the past week. No report of any psychoses. No visual or auditory hallucinations. Admits to THC use however denies any other drug use. No alcohol use. He presents to the emergency department on his own free will. No report of any suicidal or homicidal ideations. - Related Data Home Medications Medication Instructions Recorded Confirmed Buprenorphine HCl/Naloxone HCl 0.5 film SL DAILY 02/03/21 02/04/21 [Suboxone 8 mg-2 mg Sl Film] Previous Rx's Medication Instructions Recorded ARIPiprazole [Abilify] 5 mg PO DAILY 30 Days tab 02/06/21 Mirtazapine [Remeron] 15 mg PO HS 30 Days tab 02/06/21 Nicotine 14Mg/24Hr Patch [Habitrol] 1 patch TRANSDERM DAILY 14 Days 02/06/21 patch busPIRone HCl [Buspar] 15 mg PO BID 30 Days tab 02/06/21 diphenhydrAMINE [Benadryl] 50 mg PO HS 30 Days cap 02/06/21 LORazepam [Ativan] 1 mg PO HS 3 Days #3 tab 03/10/21 Allergies Allergy/AdvReac Type Severity Reaction Status Date / Time No Known Allergies Allergy Verified 03/10/21 13:30 Review of Systems ROS Statement: Those systems with pertinent positive or pertinent negative responses have been documented in the HPI. ROS Other: All systems not noted in ROS Statement are negative. Past Medical History Past Medical History: No Reported History History of Any Multi-Drug Resistant Organisms: MRSA Date of last positivie culture/infection: 01/29/2010 MDRO Source:: abd Past Surgical History: Back Surgery Past Psychological History: ADD/ADHD, Anxiety Smoking Status: Current every day smoker Past Alcohol Use History: None Reported Past Drug Use History: None Reported, Opiates Course Vital Signs 03/10/21 13:27 Temperature 98.1 F Pulse Rate 94 Respiratory 18 Rate Blood Pressure 146/84 O2 Sat by Pulse 98 Oximetry Medical Decision Making - Medical Decision Making Arrival patient is placed in room 13. A thorough history and physical exam was performed. Patient does not demonstrate any signs of psychoses. Patient is requesting Ativan. I did inform him that he did only have a 3 day prescription as it is a controlled substance. If he wants further medication prescriptions he will follow-up with his primary care doctor. I did recommend attempting Benadryl, melatonin and other healthier options for sleep however the patient reports that he has been trying these are not working. I did inform him of the risks of taking these medications especially if they are mixed with other sedating substances. Patient understood. His to follow-up with his primary care doctor in 2-4 days. Return to the emergency room for any new or worsening symptoms. Patient was discharged home in stable condition Disposition Clinical Impression: Acute insomnia Disposition: HOME SELF-CARE Condition: Stable Instructions (If sedation given, give patient instructions): Insomnia (ED) Additional Instructions: Follow up with your doctor for further treatment options. Return to the ED for any new or worsening symptoms. Prescriptions: LORazepam [Ativan] 1 mg PO HS 3 Days #3 tab Is patient prescribed a controlled substance at d/c from ED?: Yes When asked, does pt state using other controlled substances?: No If prescribed controlled substance>3 days was MAPS reviewed?: Prescribed <3 Days Referrals: Zurdo Vera DO [Primary Care Provider] - 1-2 days Time of Disposition: 14:06
== END 2021-03-10 14:26 | disposition home or self-care (01) ==
LOC: EC 13:20
DX: G47.00 Insomnia, unspecified (principal); F31.9 Bipolar disorder, unspecified; F90.9 Attention-deficit hyperactivity disorder, unspecified type; F41.9 Anxiety disorder, unspecified; F17.200 Nicotine dependence, unspecified, uncomplicated
CPT/HCPCS: 99283

== ENCOUNTER 2021-03-26 20:39 | Inpatient (IN) | payer BC ==
--- NOTE | 2021-03-26 21:51 | ED ---
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 The patient had been seen here, he states he is given a no some bipolar disorder and had been discharged prescription that included Ativan. The patient states that he had gone to [place] to reclaim his dog, and then he had been jailed there for a few days. He has just returned to [facility] today after being released and he had not been able to get the Ativan prescription filled and he is not having anxiety and insomnia. Patient requests to be given some Ativan. The patient denies suicidal or homicidal ideation. No hallucinations. MD Complaint: other -: days(s) Associated Psychiatric Symptoms: racing thoughts History of same: Yes Quality: constant Improves With: medication Worsens With: none Context: not taking psychiatric medications Associated Symptoms: denies other symptoms - Related Data Home Medications Medication Instructions Recorded Confirmed Buprenorphine HCl/Naloxone HCl 0.5 film SL DAILY 02/03/21 02/04/21 [Suboxone 8 mg-2 mg Sl Film] Previous Rx's Medication Instructions Recorded ARIPiprazole [Abilify] 5 mg PO DAILY 30 Days tab 02/06/21 Mirtazapine [Remeron] 15 mg PO HS 30 Days tab 02/06/21 Nicotine 14Mg/24Hr Patch [Habitrol] 1 patch TRANSDERM DAILY 14 Days 02/06/21 patch busPIRone HCl [Buspar] 15 mg PO BID 30 Days tab 02/06/21 diphenhydrAMINE [Benadryl] 50 mg PO HS 30 Days cap 02/06/21 LORazepam [Ativan] 1 mg PO HS 3 Days #3 tab 03/10/21 LORazepam [Ativan] 1 mg PO HS PRN 3 Days #3 tab 03/26/21 Allergies Allergy/AdvReac Type Severity Reaction Status Date / Time No Known Allergies Allergy Verified 03/26/21 20:52 Review of Systems ROS Statement: Those systems with pertinent positive or pertinent negative responses have been documented in the HPI. ROS Other: All systems not noted in ROS Statement are negative. Constitutional: Denies: fever, chills Respiratory: Denies: cough, dyspnea Cardiovascular: Denies: chest pain, palpitations, syncope Gastrointestinal: Denies: abdominal pain, vomiting, diarrhea Neurological: Denies: headache, confusion Psychiatric: Reports: anxiety. Denies: depression, auditory hallucinations, visual hallucinations, homicidal thoughts, suicidal thoughts Past Medical History Past Medical History: No Reported History History of Any Multi-Drug Resistant Organisms: MRSA Date of last positivie culture/infection: 01/29/2010 MDRO Source:: abd Past Surgical History: Back Surgery Past Psychological History: ADD/ADHD, Anxiety Smoking Status: Current every day smoker Past Alcohol Use History: None Reported Past Drug Use History: None Reported, Opiates General Exam General appearance: alert, in no apparent distress, anxious Head exam: Present: atraumatic, normocephalic Eye exam: Present: normal appearance. Absent: scleral icterus, conjunctival injection ENT exam: Present: normal oropharynx Neck exam: Present: normal inspection Respiratory exam: Present: normal lung sounds bilaterally. Absent: respiratory distress, wheezes, rales, rhonchi, stridor Cardiovascular Exam: Present: regular rate, normal rhythm, normal heart sounds. Absent: systolic murmur, diastolic murmur, rubs, gallop GI/Abdominal exam: Present: soft. Absent: distended, tenderness, guarding, rebound, rigid Extremities exam: Present: normal inspection, normal capillary refill. Absent: pedal edema, calf tenderness Back exam: Present: normal inspection. Absent: CVA tenderness (R), CVA tenderness (L) Neurological exam: Present: alert, oriented X3 Psychiatric exam: Present: anxious. Absent: depressed, agitated, flat affect, manic, homicidal ideation, suicidal ideation Skin exam: Present: warm, dry, intact, normal color. Absent: rash Course Vital Signs 03/26/21 20:46 Temperature 99.4 F Pulse Rate 98 Respiratory 19 Rate Blood Pressure 163/99 O2 Sat by Pulse 98 Oximetry Disposition Clinical Impression: Acute anxiety Disposition: HOME SELF-CARE Condition: Fair Prescriptions: LORazepam [Ativan] 1 mg PO HS PRN 3 Days #3 tab PRN Reason: Insomnia Is patient prescribed a controlled substance at d/c from ED?: Yes When asked, does pt state using other controlled substances?: No If prescribed controlled substance>3 days was MAPS reviewed?: Prescribed <3 Days Referrals: Zurdo Vera DO [Primary Care Provider] - 1-2 days
[2021-03-27] MEDS ORDERED: OLANZapine 10 MG VIAL IM PRN (02:40)
[2021-03-27] MEDS: OLANZapine 2.5 MG TAB PO PRN ×2 (03:16→15:11)
[2021-03-27] MEDS ORDERED: MAG HYDROX/AL HYDROX/SIMETH 30 ML CUP PO PRN (04:00)
[2021-03-27 07:11] LABS: Basophils # (A) 0.1 k/uL (0-0.2); Basophils % (A) 1 %; Eosinophils # (A) 0.1 k/uL (0-0.7); Eosinophils % (A) 2 %; HCT 47.4 % (39.0-53.0); HGB 15.6 gm/dL (13.0-17.5); Lymphocytes # (A) 2.1 k/uL (1.0-4.8); Lymphocytes % (A) 36 %; MCH 29.4 pg (25.0-35.0); MCHC 32.8 g/dL (31.0-37.0); MCV 89.5 fL (80.0-100.0); Mean Platelet Volume 7.7; Monocytes # (A) 0.5 k/uL (0-1.0); Monocytes % (A) 8 %; Neutrophils # (A) 2.9 k/uL (1.3-7.7); Neutrophils % (A) 50 %; Platelet Count 276 k/uL (150-450); RDW 12.9 % (11.5-15.5); WBC 5.8 k/uL (3.8-10.6)
[2021-03-27 07:33] LABS: ALT 40 U/L (4-49); AST 33 U/L (17-59); African American GFR (CKD) >90 (>60 ml/min/1.73 sqM); Albumin 4.1 g/dL (3.5-5.0); Alkaline Phosphatase 68 U/L (38-126); Anion Gap 8 mmol/L; Blood Urea Nitrogen 11 mg/dL (9-20); Calcium 9.5 mg/dL (8.4-10.2); Carbon Dioxide 24 mmol/L (22-30); Chloride 107 mmol/L (98-107); Glucose 98 mg/dL (74-99); Non-African American GFR(CKD) >90 (>60 ml/min/1.73 sqM); Potassium 3.9 mmol/L (3.5-5.1); Sodium 139 mmol/L (137-145); Total Bilirubin 0.6 mg/dL (0.2-1.3); Total Protein 6.7 g/dL (6.3-8.2)
[2021-03-27] MEDS ORDERED: MAGNESIUM HYDROXIDE 2,400 MG/10 ML CUP PO PRN (09:00)
[2021-03-27] MEDS: NICOTINE 14MG/24HR PATCH TRANSDERM SCH (09:16)
[2021-03-27] MEDS: busPIRone HCl 5 MG TAB PO SCH ×2 (09:16→20:39)
--- NOTE | 2021-03-27 13:56 | P.HP ---
Psychiatric H&P - . H&P Date: 03/27/21 History & Physical: Allergies Allergy/AdvReac Type Severity Reaction Status Date / Time No Known Allergies Allergy Verified 03/26/21 20:52 Vital Signs Temp 97.7 F 03/27/21 06:50 Pulse 121 H 03/27/21 06:50 Resp 18 03/27/21 03:52 BP 125/69 03/27/21 06:50 Pulse Ox 98 03/26/21 20:46 Intake & Output 03/26/21 03/27/21 03/27/21 18:59 06:59 18:59 Weight 110.4 kg Laboratory Last Values WBC 5.8 k/uL (3.8-10.6) 03/27/21 06:45 RBC 5.30 m/uL (4.30-5.90) 03/27/21 06:45 Hgb 15.6 gm/dL (13.0-17.5) 03/27/21 06:45 Hct 47.4 % (39.0-53.0) 03/27/21 06:45 MCV 89.5 fL (80.0-100.0) 03/27/21 06:45 MCH 29.4 pg (25.0-35.0) 03/27/21 06:45 MCHC 32.8 g/dL (31.0-37.0) 03/27/21 06:45 RDW 12.9 % (11.5-15.5) 03/27/21 06:45 Plt Count 276 k/uL (150-450) 03/27/21 06:45 MPV 7.7 03/27/21 06:45 Neutrophils % 50 % 03/27/21 06:45 Lymphocytes % 36 % 03/27/21 06:45 Monocytes % 8 % 03/27/21 06:45 Eosinophils % 2 % 03/27/21 06:45 Basophils % 1 % 03/27/21 06:45 Neutrophils # 2.9 k/uL (1.3-7.7) 03/27/21 06:45 Lymphocytes # 2.1 k/uL (1.0-4.8) 03/27/21 06:45 Monocytes # 0.5 k/uL (0-1.0) 03/27/21 06:45 Eosinophils # 0.1 k/uL (0-0.7) 03/27/21 06:45 Basophils # 0.1 k/uL (0-0.2) 03/27/21 06:45 Sodium 139 mmol/L (137-145) 03/27/21 06:45 Potassium 3.9 mmol/L (3.5-5.1) 03/27/21 06:45 Chloride 107 mmol/L (98-107) 03/27/21 06:45 Carbon Dioxide 24 mmol/L (22-30) 03/27/21 06:45 Anion Gap 8 mmol/L 03/27/21 06:45 BUN 11 mg/dL (9-20) 03/27/21 06:45 Creatinine 0.87 mg/dL (0.66-1.25) 03/27/21 06:45 Est GFR (CKD-EPI)AfAm >90 (>60 ml/min/1.73 sqM) 03/27/21 06:45 Est GFR (CKD-EPI)NonAf >90 (>60 ml/min/1.73 sqM) 03/27/21 06:45 Glucose 98 mg/dL (74-99) 03/27/21 06:45 Calcium 9.5 mg/dL (8.4-10.2) 03/27/21 06:45 Total Bilirubin 0.6 mg/dL (0.2-1.3) 03/27/21 06:45 AST 33 U/L (17-59) 03/27/21 06:45 ALT 40 U/L (4-49) 03/27/21 06:45 Alkaline Phosphatase 68 U/L (38-126) 03/27/21 06:45 Total Protein 6.7 g/dL (6.3-8.2) 03/27/21 06:45 Albumin 4.1 g/dL (3.5-5.0) 03/27/21 06:45 TSH 5.340 mIU/L (0.465-4.680) H 03/27/21 06:45 03/27/21 13:55 IDENTIFYING DATA: Patient is a , unemployed, 31-year-old male was admitted under a pickup order for nonadherence with treatment. HPI: Patient presented to the hospital on 03/27/2021, brought in on a pickup order for noncompliance with his treatment order as the patient is under deferral from his inpatient psychiatric admission on this mental health unit in January of this year. Patient initially did follow up with [facility], but was not taking his medications as prescribed. A demand for court hearing was filed. The patient was supposed to be in court on 03/23/2021, but was in detention in [place] so he was unable to attend. The patient was recently released from detention and came back to [place] and was immediately brought to the hospital. The patient reports that he is undergoing a divorce with his of 2 years who is currently living in [place]. The patient states that he went down to [place] in order to stay in his home and states that he is on the lease for that home along with his . He reports that when he arrived to the home, she was not present and he decided to enter the window to see his dog inside. He then reports that he had a "dream that she was sick and using drugs" so he decided to text her and tell her that it is safe for her to come home. He reports that he then fell asleep and when he woke up, lease were at the door informing him that there was a personal protection order filed against him and that he should not be present in the home. The patient then left the home and drove around [place] all night. He states that he then returned back to the home and noticed that she was not there and therefore he would not be violating this protection order as she was not present. He then states that he went back to sleep and when he woke up, police then brought him to detention. He reports that he was in detention for 2 weeks. Patient was last evaluated by [facility] on 02/17/2021 and was accompanied by his father. At that medication review, the patient was noted to be paranoid believing that he was followed. Furthermore, the patient was placed on a regimen of Abilify, Remeron, Benadryl, and BuSpar while on the psychiatric unit but began experiencing significant akathisia and therefore stopped taking his medications. The patient does endorse a significant history of bipolar disorder. He states that over the last 4 months, he has been functioning on 15-20 minutes of sleep per day. He does endorse a significant history of impulsivity, stating that he has one spent $5000 on clothes. He endorses a flight of ideas, racing thoughts, increased goal-directed activity, mood lability, and paranoia. The patient does report that he has also had episodes of depression where he would not want to get out of bed or wake up weeks on end. He denies any prior attempts at suicide. He does report a history of substance abuse. The patient previously abused opioids and stated that he would spend up to $3000 a day on opioids. The patient also appears to be medication seeking and is often asking for benzodiazepine medications or Adderall. PAST PSYCHIATRIC HISTORY: Patient has diagnoses of bipolar 1 disorder, opioid use disorder, and relationship distress with his spouse. When the patient was last admitted on the psychiatric unit, he was discharged on a regimen of Abilify, Remeron, Benadryl, and BuSpar. The patient was last admitted on to the psychiatric unit in January 2021. He reports no other prior inpatient psychiatric admissions. He states that he was evaluated twice before coming to [facility] was informed that he wasn't mentally ill. Patient follows with [facility] in the outpatient setting. Patient denies any history of suicide attempts in the past. PMH: Past Medical History: No Reported History History of Any Multi-Drug Resistant Organisms: MRSA Date of last positivie culture/infection: 01/29/2010 MDRO Source:: abd Past Surgical History: Back Surgery Past Psychological History: ADD/ADHD, Anxiety Smoking Status: Current every day smoker Past Alcohol Use History: None Reported Past Drug Use History: None Reported, Opiates ALLERGIES: NO KNOWN DRUG ALLERGIES - Abilify caused him akathisia CHEMICAL DEPENDENCY HISTORY: Patient has a history of opioid use disorder. Furthermore, the patient is benzodiazepine seeking, stating that this is the medication he has been prescribed, but review of the maps revealed no Ativan prescriptions.. He is otherwise not reporting any significant substance use. He smokes cigarettes daily. The patient also uses cannabis. FAMILY PSYCHIATRIC/SUBSTANCE USE HISTORY: The patient's mother is reportedly diagnosed bipolar disorder and is on lithium. Father with history of depression. SOCIAL HISTORY: Patient was born and raised in [place], [place]. The patient also resided in [facility]. The patient is currently from his of 2 years and is currently living in [place]. He has been staying with his parents in the [facility]. He has no children. Aside from his recent incarceration, the patient reports no other legal problems. The patient graduated high school and attended 2 years of college. 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 MENTAL STATUS EXAM: General Appearance: Patient appears to be stated age is alert, directable, and attempts to cooperate. Patient appears to have fair hygiene and grooming. Tall and big build with multiple tattoos. Behavior: Patient is seated without any agitated behavior. Psychomotor activity is elevated. Eye contact is fair. Speech: Patient's speech is fluent and nonpressured. Spontaneous, with normal rate, tone, volume and fluency. Mood/Affect: Patient reports their mood is "I'm just tired," affect is congruent but later expansive. Suicidality/Homicidality: Patient denies having any homicidal ideation intent or plan. Denies any suicidal ideations intent or plan Perceptions: Patient denies any visual hallucinations and denies any auditory hallucinations Though content/process: The patient does display some paranoid delusional thought content and appears to have a flight of ideas. Memory and concentration: AOX3, grossly intact for the purposes of this session. Can spell "WORLD" backwards Judgment and insight: Poor STRENGTHS/WEAKNESSES: Strength is that the patient appears to have a supportive family and is financially stable. Weakness is that the patient has a significant history of substance abuse, and a history of nonadherence with treatment. INTELLECT: average IMPRESSIONS: Bipolar disorder, type I, with psychotic features Nicotine dependence Cannabis use disorder Opioid use disorder PLAN: -Patient is admitted under involuntary status to MHU for stabilization of psychiatric symptoms and safety as the patient was not adherent with his deferral. A demand for court hearing has been filed. -Medications : Start lithium 300 mg by mouth 3 times a day for mood stabilization Start Invega 3 mg by mouth at bedtime for mood stabilization/psychosis as a transition the patient to Invega Sustenna. We'll titrate Invega to 6 mg over the weekend. Discontinue Remeron as we are concerned for manic switch Continue BuSpar 15 mg by mouth twice a day for anxiety - Zyprexa PRN for agitation/aggression -Patient was counselled on substance abuse -Patient was informed of the risks, benefits and side effects of the medication and patient verbally consented to taking the medications. Patient signed med consent form and was placed in chart. -Internal Medicine consult to perform medical evaluation and physical. -NRT - nicotine patch -SW on board for discharge planning. Encourage patient to participate in groups to work on coping skills. 03/27/21 13:55
[2021-03-27] MEDS: ACETAMINOPHEN TAB 325 MG TAB PO PRN ×2 (14:11→18:26)
[2021-03-27 14:45] LABS: Hemoglobin A1C 5.5 % (4.0-6.0)
--- NOTE | 2021-03-27 16:27 | P.HPMEDMHU ---
History of Present Illness H&P Date: 03/27/21 History of Presenting Illness: Patient is a 31-year-old male with a past medical history of ADHD, anxiety, nicotine dependence, cannabis use disorder, opioid use disorder and bipolar 1 disorder. He is currently admitted to inpatient mental health unit under psychiatry team after being brought to facility for noncompliance with his court ordered medical/medication treatment with [facility]. We have been consulted to follow patient throughout admission for continued medical management. Upon physical exam patient reports having acute on chronic lower back pain reports previous back injury with lumbar fusion. He denies having any numbness or tingling sens ations in his lower extremities or experiencing any weakness or difficulty with walking or range of motion. Patient also reports feeling anxious and states he smokes one pack of cigarettes daily. Patient denies having any other complaints at this time including headache, lightheadedness, dizziness, chest pain, palpitations, shortness of breath, changes in appetite, nausea, vomiting, abdominal pain, or any difficulties with her changes in his urinary or bowel function. Patient denies having any suicidal or homicidal ideations and denies having any visual, tactile, or auditory hallucinations. Review of systems: Pertinent positives and negatives as discussed in HPI, a complete review of systems was performed and all other systems are negative. Physical exam: Vital signs reviewed and stable. General: Nontoxic, no distress and appears stated age. Derm: Skin warm and dry, normal coloration for ethnicity. Head: Atraumatic, normocephalic and symmetric. Eyes: EOMs intact, no lid lag, and anicteric sclera Mouth: no lip lesions, mucus membranes moist Cardiovascular: regular rate and rhythm with normal S1S2, no murmur, positive posterior tibial pulses bilaterally, and cap refill < 2 seconds. Lungs: Respirations even, regular, and unlabored on room air. Lungs CTA bilaterally, no rhonchi, no rales, no wheezing, and no accessory muscle usage. Abdominal: soft, nontender to palpation, no guarding, no appreciable organomegaly Ext: ROM intact. No gross muscle atrophy, no edema, no contractures Neuro: Speech clear, face symmetrical and CN II-XII grossly intact with no noted focal neuro deficits Psych: Alert and oriented to person, place, time, and situation. Appropriate and pleasant affect. Assessment and Plan of Care: Acute on chronic lower Back pain -Symptomatic care and pain management. -As needed Tylenol every 4 hours for mild pain/discomfort and lidocaine patch added at this time. Avoid opioids secondary to patient's opioid use disorder. Nicotine dependence -Patient to receive encouragement and education on the importance of smoking cessation and risks of continued use. -Nicotine patch. Cannabis abuse disorder -Patient to receive encouragement and education on the importance of cessation of cannabis use/abuse and risks of continued use. Bipolar disorder, ADHD, and anxiety -Management per primary admitting psychiatric team. Thank you for allowing us to participate in the care of this pleasant patient. Do not hesitate to contact us with questions. RN to notify provider with any needs. Someone can be reached from the [facility] hospitalist group all hours of the day at [phone] or via [employer]. Past Medical History Past Medical History: No Reported History History of Any Multi-Drug Resistant Organisms: MRSA Date of last positivie culture/infection: 01/29/2010 MDRO Source:: abd Past Surgical History: Back Surgery Past Anesthesia/Blood Transfusion Reactions: No Reported Reaction Past Psychological History: ADD/ADHD, Anxiety Smoking Status: Current every day smoker Past Alcohol Use History: Rare Past Drug Use History: Marijuana, Opiates Medications and Allergies Home Medications Medication Instructions Recorded Confirmed Type Buprenorphine HCl/Naloxone HCl 0.5 film SL DAILY 02/03/21 02/04/21 History [Suboxone 8 mg-2 mg Sl Film] ARIPiprazole [Abilify] 5 mg PO DAILY 30 Days tab 02/06/21 Rx Mirtazapine [Remeron] 15 mg PO HS 30 Days tab 02/06/21 Rx Nicotine 14Mg/24Hr Patch [Habitrol] 1 patch TRANSDERM DAILY 14 Days 02/06/21 Rx patch busPIRone HCl [Buspar] 15 mg PO BID 30 Days tab 02/06/21 Rx diphenhydrAMINE [Benadryl] 50 mg PO HS 30 Days cap 02/06/21 Rx LORazepam [Ativan] 1 mg PO HS 3 Days #3 tab 03/10/21 Rx LORazepam [Ativan] 1 mg PO HS PRN 3 Days #3 tab 03/26/21 Rx Allergies Allergy/AdvReac Type Severity Reaction Status Date / Time No Known Allergies Allergy Verified 03/26/21 20:52 Physical Exam Vitals: Vital Signs Temp Pulse Pulse Resp BP BP Pulse Ox 03/27/21 06:50 97.7 F 121 H 125/69 03/27/21 03:52 97.8 F 74 18 128/62 03/26/21 20:46 99.4 F 98 19 163/99 98 Intake and Output 03/27/21 03/27/21 03/27/21 06:59 14:59 22:59 Other: Weight 110.4 kg Cranial Nerve Examination - Cranial Nerves Cranial Nerve II- Optic: Intact Cranial Nerve III- Oculomotor: Intact Cranial Nerve IV- Trochlear: Intact Cranial Nerve V- Trigeminal: Intact Cranial Nerve - Abducens: Intact Cranial Nerve VII- Facial: Intact Cranial Nerve VIII- Auditory: Intact Cranial Nerve IX- Glossopharyngeal: Intact Cranial Nerve X- Vagus: Intact Cranial Nerve XI- Accessory: Intact Cranial Nerve XII- Hypoglossal: Intact Results CBC & Chem 7: 03/27/21 06:45 03/27/21 06:45 Labs: Abnormal Lab Results - Last 24 Hours (Table) 03/27/21 Range/Units 06:45 TSH 5.340 H (0.465-4.680) mIU/L Thrombosis Risk Factor Assmnt - Choose All That Apply Any of the Below Risk Factors Present?: No Other Risk Factors: No Other congenital or acquired thrombophilia - If yes, enter type in comment: No Thrombosis Risk Factor Assessment Level: Very Low Risk
[2021-03-27] MEDS: LITHIUM CARBONATE 300 MG CAP PO SCH ×2 (16:50→21:09)
[2021-03-27] MEDS: LIDOCAINE 5% PATCH TOPICAL SCH (16:52)
[2021-03-27] MEDS ORDERED: PALIPERIDONE 3 MG TAB.ER.24 PO SCH (21:00)
[2021-03-27] MEDS ORDERED: MIRTAZAPINE 15 MG TAB PO SCH (21:00)
[2021-03-28] MEDS: OLANZapine 2.5 MG TAB PO PRN ×3 (03:51→16:42)
[2021-03-28] MEDS: ACETAMINOPHEN TAB 325 MG TAB PO PRN ×3 (03:51→22:55)
[2021-03-28] MEDS: busPIRone HCl 5 MG TAB PO SCH ×2 (08:19→20:04)
[2021-03-28] MEDS: LITHIUM CARBONATE 300 MG CAP PO SCH ×2 (08:19→20:04)
[2021-03-28] MEDS: NICOTINE 14MG/24HR PATCH TRANSDERM SCH (08:19)
[2021-03-28] MEDS: hydrOXYzine pamoate 25 MG CAP PO PRN ×2 (13:26→22:57)
[2021-03-28] MEDS: LIDOCAINE 5% PATCH TOPICAL SCH (16:40)
[2021-03-28] MEDS: PALIPERIDONE 6 MG TAB.ER.24 PO SCH (20:04)
--- NOTE | 2021-03-28 23:20 | P.PN ---
Progress Note - Text Progress Note Date: 03/28/21 Subjective: Patient was seen today as a cross coverage for Dr. Sharpe. The patient was evaluated, chart reviewed, case discussed with the treatment team. Patient reports good sleep last night, and appetite was reported as " fair". Patient has not been going to groups and other unit activities. The patient is compliant with his medications and denies any adverse reactions. Patient greatly minimizes depression but reports his anxiety is very high. He denies mood swings, anger or agitation. He denies any hallucinations, paranoid ideation, or delusions. Reports feeling tired and drowsy for most of the time. He was fixated on back pain and requested to be on narcotics or Suboxone. He also requested Ativan to help with anxiety. Patient was educated about his medication benzodiazepines and the narcotics including Suboxone. Objective: Vitals has been reviewed. Mental status examination; Appearance: The patient appears stated age, adequately groomed and dressed, no specific features. Gait/posture: Normal gait, Normal arm swinging: No abnormal movements. Attitude and behavior: engaged, cooperative, eye contact. Motor activity: Normal psychomotor activity Speech: Normal rate, tone. Mood: Anxious , tired Affect: Constricted Thought form: goal-directed, linear, coherent. Thought content: Non-delusional, denies suicidal thoughts, denies homicidal thoughts, denies intentions or plans. Perception: Denies any auditory or visual hallucinations Attention: No impairment. Orientation: Patient patient was fully oriented to time place person and situation. Insight: Patient has fair insight about his psychiatric disorder. Judgment: Patient has fair judgment about his psychiatric treatment. Assessment: Bipolar disorder, type I, with psychotic features. Nicotine use disorder. Cannabis use disorder. Opioid use disorder. Plan: Continue inpatient level of care due to need for further monitoring and stabilization Precautions: Continue 15 minutes check for safety. Consider medical consultation if any acute medical issues arise. Provide the patient individual, group therapy, substance use disorder counseling to give better insight and learn coping skills. Medications: Continue lithium for mood stabilization but adjusted the dose to 300 in the morning and 600 at bedtime to minimize dizziness and tiredness. Continue Invega for mood stabilization and psychotic symptoms. Continue BuSpar for anxiety. Start Vistaril as needed for severe anxiety. Continue as needed medications for psychiatric emergencies including psychosis, agitation and anxiety. Continue non-psychiatric medications for medical conditions as recommended by the medical team. Discharge patient to OUTPATIENT services upon a stabilization
[2021-03-29] MEDS: hydrOXYzine pamoate 25 MG CAP PO PRN ×3 (04:27→17:52)
[2021-03-29] MEDS: LITHIUM CARBONATE 300 MG CAP PO SCH ×2 (07:51→20:02)
[2021-03-29] MEDS: NICOTINE 14MG/24HR PATCH TRANSDERM SCH (07:51)
[2021-03-29] MEDS: busPIRone HCl 5 MG TAB PO SCH ×2 (07:51→20:02)
[2021-03-29] MEDS: LORazepam 0.5 MG TAB PO PRN ×2 (13:31→21:07)
[2021-03-29] MEDS: LIDOCAINE 5% PATCH TOPICAL SCH (15:37)
[2021-03-29] MEDS: ACETAMINOPHEN TAB 325 MG TAB PO PRN (16:38)
[2021-03-29] MEDS: PALIPERIDONE 6 MG TAB.ER.24 PO SCH (20:02)
--- NOTE | 2021-03-29 23:37 | P.PN ---
Progress Note - Text Progress Note Date: 03/29/21 Subjective: Patient was seen today as a cross coverage for Dr. Sharpe. The patient was evaluated, chart reviewed, case discussed with the treatment team. Patient reports high anxiety with racing thoughts, feeling tense most of the time, and he couldn't sleep last night because of severe anxiety attacks with racing heart. He tried Vistaril but didn't help with controlling his anxiety. Patient reports currently not taking any opiates medications and he had benefited from Ativan as needed to control his anxiety when he first came to the hospital. Discussed with the patient to add Ativan only as needed and he was educated about the risk of taking any benzodiazepine with opioids. Patient denies depression, feeling hopeless, or suicidal. Denies any severe mood swings, irritability, agitation, manic or psychotic symptoms. Reports interrupted sleep last night because of his anxiety, but denies any appetite problems. Continues to attend groups and other activities, and he takes his psychiatric medications with no side effects reported. Objective: Vitals has been reviewed. Mental status examination; Appearance: The patient appears stated age, adequately groomed and dressed, no specific features. Gait/posture: Normal gait, Normal arm swinging: No abnormal movements. Attitude and behavior: engaged, cooperative, eye contact. Motor activity: Normal psychomotor activity Speech: Normal rate, tone. Mood: Anxious Affect: Constricted Thought form: goal-directed, linear, coherent. Thought content: Non-delusional, denies suicidal thoughts, denies homicidal thoughts, denies intentions or plans. Perception: Denies any auditory or visual hallucinations Attention: No impairment. Orientation: Patient patient was fully oriented to time place person and situation. Insight: Patient has fair insight about his psychiatric disorder. Judgment: Patient has fair judgment about his psychiatric treatment. Assessment: Bipolar disorder, type I, with psychotic features. Nicotine use disorder. Cannabis use disorder. Opioid use disorder. Plan: Continue inpatient level of care due to need for further monitoring and stabilization Precautions: Continue 15 minutes check for safety. Consider medical consultation if any acute medical issues arise. Provide the patient individual, group therapy, substance use disorder counseling to give better insight and learn coping skills. Medications: Continue lithium for mood stabilization but adjusted the dose to 300 in the morn ing and 600 at bedtime to minimize dizziness and tiredness. Continue Invega for mood stabilization and psychotic symptoms. Continue BuSpar for anxiety. Continue Vistaril as needed for severe anxiety. Nicotine replacement therapy Continue as needed medications for psychiatric emergencies including oral Zyprexa for psychosis, agitation and oral Ativan for anxiety. Continue non-psychiatric medications for medical conditions as recommended by the medical team. Discharge patient to OUTPATIENT services upon a stabilization
[2021-03-30] MEDS: hydrOXYzine pamoate 25 MG CAP PO PRN ×3 (06:26→18:42)
[2021-03-30] MEDS: NICOTINE 14MG/24HR PATCH TRANSDERM SCH (08:10)
[2021-03-30] MEDS: busPIRone HCl 5 MG TAB PO SCH (08:10)
[2021-03-30] MEDS: LORazepam 0.5 MG TAB PO PRN (08:12)
[2021-03-30] MEDS: LITHIUM CARBONATE 300 MG CAP PO SCH ×2 (08:13→20:47)
[2021-03-30] MEDS ORDERED: LORazepam 1 MG TAB PO PRN (10:24)
--- NOTE | 2021-03-30 11:35 | P.PN ---
Progress Note - Text Progress Note Date: 03/30/21 Interval History: Patient was seen resting in bed and was directable and agreeable to speak with engineering writer in the office. The patient reports that he was able to sleep very well. He is currently not reporting any suicidal or homicidal ideation, intention, and/or plan. He is denying any auditory or visual hallucinations. He is reporting no paranoia or other delusions. He continues to endorse racing thoughts but attributes this to elevated anxiety. The patient expresses that he has increased panic and excessive worry that begins in the morning and that only Ativan has been able to treat this. The patient was also informed that he would be receiving long-acting injectable Invega Sustenna due to his history of nonadherence with medications. The patient maintains that he was not adherent with his previous medications because they caused him significant side effects, in particular his concern with Seroquel as it caused him to "sleepwalk." The patient was informed that he is under court order, and because of this he will take the injection of Invega Sustenna. Mental Status Exam: General Appearance: Patient appears to be stated age is alert, directable, and attempts to cooperate. Patient appears to have fair hygiene and grooming. Tall and big build with multiple tattoos. Behavior: Patient is seated without any agitated behavior. Normal psychomotor activity. Eye contact is fair. Speech: Patient's speech is fluent and nonpressured. Spontaneous, with normal rate, tone, volume and fluency. Mood/Affect: Patient reports their mood is "I'm feeling better." Affect is euthymic and constricted. Suicidality/Homicidality: Patient denies having any homicidal ideation intent or plan. Denies any suicidal ideations intent or plan Perceptions: Patient denies any visual hallucinations and denies any auditory hallucinations Though content/process: Fixation on benzodiazepine medications. Thought process is otherwise linear and logical. Memory and concentration: AOX3, grossly intact for the purposes of this session. Can spell "WORLD" backwards Judgment and insight: Mildly improving Vital Signs Temp 97.6 F 03/30/21 00:50 Pulse 80 03/30/21 00:50 Resp 14 03/30/21 00:50 BP 130/58 03/30/21 00:50 Pulse Ox 98 03/30/21 00:50 Intake & Output 03/29/21 03/30/21 03/30/21 18:59 06:59 18:59 Weight 112.6 kg Assessment Bipolar disorder, type I, with psychotic features Nicotine dependence Cannabis use disorder Opioid use disorder Plan: -Patient continues to meet criteria for inpatient psychiatric admission for symptom stabilization and safety. Patient is under court order. -Medications: Continue lithium 300 mg by mouth every morning, 600 mg by mouth at bedtime for mood stabilization. Check lithium level tomorrow. Increase Invega to 9 mg by mouth at bedtime with plans to transition the patient to Invega Sustenna due to his history of nonadherence to treatment. Increase BuSpar to 20 mg by mouth twice a day for anxiety -When necessary Ativan , Vistaril, and Zyprexa for agitation/aggression. -NRT - nicotine patch -SW on board for discharge planning. Encouraged the patient to participate in milieu.
[2021-03-30] MEDS: ACETAMINOPHEN TAB 325 MG TAB PO PRN (13:24)
[2021-03-30] MEDS: LIDOCAINE 5% PATCH TOPICAL SCH (15:34)
[2021-03-30] MEDS: OLANZapine 2.5 MG TAB PO PRN (16:32)
[2021-03-30] MEDS: busPIRone HCl 10 MG TAB PO SCH (20:47)
[2021-03-30] MEDS ORDERED: PALIPERIDONE 3 MG TAB.ER.24 PO SCH (21:00)
[2021-03-31] MEDS: busPIRone HCl 10 MG TAB PO SCH ×2 (07:53→20:35)
[2021-03-31] MEDS: NICOTINE 14MG/24HR PATCH TRANSDERM SCH (07:53)
[2021-03-31] MEDS: LITHIUM CARBONATE 300 MG CAP PO SCH (07:54)
[2021-03-31] MEDS: hydrOXYzine pamoate 25 MG CAP PO PRN ×2 (10:11→15:59)
[2021-03-31] MEDS ORDERED: PALIPERIDONE IM 234 MG/1.5 ML SYG IM STA (10:17)
--- NOTE | 2021-03-31 13:05 | P.PN ---
Progress Note - Text Progress Note Date: 03/31/21 Interval History: Patient was seen resting in bed and was directable and agreeable to speak with resume writer in the office. The patient is reporting that he is feeling well except endorsing significant amounts of anxiety. The patient reports his anxiety appears to be worse in the morning. He reports he is wearing about "anything and everything." He is otherwise reporting some muscle pain and difficulty sleeping because of it. He is currently not reporting any suicidal or homicidal ideation, intention, and/or plan. He is not reporting any auditory or visual hallucinations. He is not reporting any paranoia or other delusions. The patient is agreeable to taking Invega Sustenna today due to his history of nonadherence with medications. He is currently not reporting any significant side effects of the medications and appears to be tolerating them well. He has been attending group and involved in milieu activities appropriately. Mental Status Exam: General Appearance: Patient appears to be stated age is alert, directable, and attempts to cooperate. Patient appears to have fair hygiene and grooming. Tall and big build with multiple tattoos. Behavior: Patient is seated without any agitated behavior. Normal psychomotor activity. Eye contact is fair. Speech: Patient's speech is fluent and nonpressured. Spontaneous, with normal rate, tone, volume and fluency. Mood/Affect: Patient reports their mood is "I'm just nervous in the morning. " Affect is euthymic and expansive. Not congruent with anxiety. Suicidality/Homicidality: Patient denies having any homicidal ideation intent or plan. Denies any suicidal ideations intent or plan Perceptions: Patient denies any visual hallucinations and denies any auditory hallucinations Though content/process: Fixation on benzodiazepine medications. Thought process is otherwise linear and logical. Memory and concentration: AOX3, grossly intact for the purposes of this session. Can spell "WORLD" backwards Judgment and insight: Mildly improving Vital Signs Temp 97.6 F 03/30/21 00:50 Pulse 80 03/30/21 00:50 Resp 14 03/30/21 00:50 BP 130/58 03/30/21 00:50 Pulse Ox 98 03/30/21 00:50 Laboratory Results - Last 24 Hours 03/31/21 07:15 [facility] 0.4 Assessment Bipolar disorder, type I, with psychotic features Nicotine dependence Cannabis use disorder Opioid use disorder Plan: -Patient continues to meet criteria for inpatient psychiatric admission for symp maurice stabilization and safety. Patient is under court order. -Medications: [facility] found to be subtherapeutic. We will increase lithium to 300 mg by mouth every morning, 900 mg by mouth at bedtime for mood stabilization. Administer first loading dose of Invega Sustenna 234 mg IM today. Discontinue oral Invega Continue BuSpar 20 mg by mouth twice a day for anxiety Add flexeril for bedtime. -When necessary Ativan , Vistaril, and Zyprexa for agitation/aggression. -NRT - nicotine patch -SW on board for discharge planning. Encouraged the patient to participate in milieu.
[2021-03-31] MEDS: LORazepam 1 MG TAB PO PRN (13:31)
[2021-03-31] MEDS: ACETAMINOPHEN TAB 325 MG TAB PO PRN (14:51)
[2021-03-31] MEDS: LIDOCAINE 5% PATCH TOPICAL SCH (15:58)
[2021-03-31] MEDS ORDERED: CYCLOBENZAPRINE 10 MG TAB PO SCH (21:00)
[2021-03-31] MEDS ORDERED: LITHIUM CARBONATE 300 MG CAP PO SCH (21:00)
[2021-04-01] MEDS: LORazepam 1 MG TAB PO PRN (01:36)
[2021-04-01 01:39] VITALS: BP 155/70; PULSE 87; RESP 16; TEMP 97
[2021-04-01] MEDS: busPIRone HCl 10 MG TAB PO SCH (08:25)
[2021-04-01] MEDS: NICOTINE 14MG/24HR PATCH TRANSDERM SCH (08:25)
[2021-04-01] MEDS: LITHIUM CARBONATE 300 MG CAP PO SCH (08:26)
--- NOTE | 2021-04-01 11:31 | P.DS ---
Providers Date of admission: 03/27/21 02:32 Expected date of discharge: 04/01/21 Attending physician: Tera Sharpe MD Consults: 03/27/21 02:34 Consult Physician Routine Consulting Provider: Jayro Maldonado Consult Reason/Comments: History and physical Do you want consulting provider notified?: Yes Primary care physician: Zurdo Vera - Discharge Diagnosis(es) (1) Bipolar disorder with psychotic features Current Visit: Yes Status: Acute Priority: High (2) Opiate use Current Visit: No Status: Chronic Priority: Medium (3) Cannabis abuse Current Visit: Yes Status: Chronic Priority: Medium (4) Nicotine dependence Current Visit: Yes Status: Chronic Priority: Medium Hospital Course: Admission HPI: Patient is a , unemployed, 31-year-old male was admitted under a pickup order for nonadherence with treatment. Patient presented to the hospital on 03/27/2021, brought in on a pickup order for noncompliance with his treatment order as the patient is under deferral from his inpatient psychiatric admission on this mental health unit in January of this year. Patient initially did follow up with [facility], but was not taking his medications as prescribed. A demand for court hearing was filed. The patient was supposed to be in court on 03/23/2021, but was in long-term in [place] so he was unable to attend. The patient was recently released from long-term and came back to [place] and was immediately brought to the hospital. The patient reports that he is undergoing a divorce with his of 2 years who is currently living in [place]. The patient states that he went down to [place] in order to stay in his home and states that he is on the lease for that home along with his . He reports that when he arrived to the home, she was not present and he decided to enter the window to see his dog inside. He then reports that he had a "dream that she was sick and using drugs" so he decided to text her and tell her that it is safe for her to come home. He reports that he then fell asleep and when he woke up, lease were at the door informing him that there was a personal protection order filed against him and that he should not be present in the home. The patient then left the home and drove around [place] all night. He states that he then returned back to the home and noticed that she was not there and therefore he would not be violating this protection order as she was not present. He then states that he went back to sleep and when he woke up, police then brought him to long-term. He reports that he was in long-term for 2 weeks. Patient was last evaluated by [facility] on 02/17/2021 and was accompanied by his father. At that medication review, the patient was noted to be paranoid believing that he was followed. Furthermore, the patient was placed on a regimen of Abilify, Remeron, Benadryl, and BuSpar while on the psychiatric unit but began experiencing significant akathisia and therefore stopped taking his medications. The patient does endorse a significant history of bipolar disorder. He states that over the last 4 months, he has been functioning on 15-20 minutes of sleep per day. He does endorse a significant history of impulsivity, stating that he has one spent $5000 on clothes. He endorses a flight of ideas, racing thoughts, increased goal-directed activity, mood lability, and paranoia. The patient does report that he has also had episodes of depression where he would not want to get out of bed or wake up weeks on end. He denies any prior attempts at suicide. He does report a history of substance abuse. The patient previously abused opioids and stated that he would spend up to $3000 a day on opioids. The patient also appears to be medication seeking and is often asking for benzodiazepine medications or Adderall. Patient has diagnoses of bipolar 1 disorder, opioid use disorder, and relationship distress with his spouse. When the patient was last admitted on the psychiatric unit, he was discharged on a regimen of Abilify, Remeron, Benadryl, and BuSpar. The patient was last admitted on to the psychiatric unit in January 2021. He reports no other prior inpatient psychiatric admissions. He states that [facility] that [facility] wasn't [facility] ill. Patient follows with [facility] in the outpatient setting. Patient denies any history of suicide attempts in the past. Hospital course: Upon admission to the unit patient was initially presenting with significant symptoms of gilmer. He presented with an elevated and expansive affect and endorsed no sleep for the past month. Furthermore, the patient did report a significant history of impulsive behaviors, most recently, going down to [place] in violating a personal protection order. Patient was however directable and agreeable to commence treatment. The patient was started on lithium and Invega for management of his bipolar disorder. Remeron was discon tinued due to concerns for manic switch. BuSpar was continued for his anxiety. Over the course of the hospitalization, lithium and Invega were gradually titrated in order to address his manic symptoms. The patient also has a significant history of nonadherence with treatment and therefore Invega Sustenna was indicated. The patient also displayed significant med seeking behaviors while admitted on the psychiatric unit. He is often asking for benzodiazepine medications because of complaints of anxiety. The patient does have significant history of opiate use disorder and despite his complaints of anxiety, the patient was presented well and without any nervous affect. He was expansive and bright on the unit and attending groups without incident or concern. Arkoe was gradually titrated to 300 mg in the morning and 900 mg at bedtime. His last lithium level was on 03/31/2021 and was 0.4. The first loading dose of Invega Sustenna 234 mg IM was administered on 03/31/21. The patient is due for his second loading dose on 04/07/21. The patient did attend mental health court as a demand was filed for him. Mental health court was scheduled for 04/01/21. The patient was court ordered to follow-up with his outpatient appointments and to be adherent with his medications. On the day of discharge, the patient is not reporting any suicidal or homicidal ideation, intention, and/or plan. He is not reporting auditory or visualizations. He denies any access to firearms or other weapons. The patient does have a significant history of substance abuse however was counseled on abstaining from all substances including alcohol, marijuana, benzodiazepines, and opiates. The patient was counseled at length on the substances and how they can affect his mental health. This provider even contacted the patient's primary care physician exposing his concern that the patient has been prescribed Adderall in the past. Prior to discharge, family meeting will be arranged by social work instructor has any questions and ensure safety. Mental status exam: General Appearance: Patient appears to be stated age is alert, pleasant, and cooperative. Patient is in no acute distress and has fair hygiene and grooming. Patient is a large male with a well-kept quinonez. Behavior: Patient is calmly seated without any agitated behavior. Psychomotor activity appears normal. Eye contact is appropriate. Speech: Patient's speech is fluent and nonpressured. Speech is spontaneous, normal rate, tone, and volume. Mood/Affect: Patient reports their mood is "feeling great", affect is congruent and euthymic, bright, slightly expansive. Suicidality/Homicidality: Patient denies having any suicidal or homicidal ideation intent or plan. Perceptions: Patient denies any auditory or visual hallucinations. Though content/process: There is no evidence of any delusional thought content and thought process is linear and goal-directed. Patient is future oriented and wants to go back to work. Memory and concentration: AOX3, grossly intact for the purposes of this session. Can spell "WORLD" backwards correctly. Judgment and insight: Improved with guarded prognosis Vital Signs Temp 97.0 F L 04/01/21 01:39 Pulse 87 04/01/21 01:39 Resp 16 04/01/21 01:39 BP 155/70 04/01/21 01:39 Pulse Ox 97 04/01/21 01:39 Impression: Bipolar disorder, type I, with psychotic features Nicotine dependence Cannabis use disorder Opioid use disorder Plan: -Continue with discharge today as patient has improved and stabilized psychiatrically and is not currently an imminent threat to himself and/or others. Patient will remain at chronically elevated risk for harm to self and/or others due to his impulsivity and polysubstance abuse. -Continue medications: Continue lithium 300 mg by mouth every morning, 900 mg daily at bedtime for mood stabilization Invega Sustenna 234 mg IM was administered on 03/31/21. The patient is to receive his second loading dose 156 mg IM on 04/07/2021. Continue BuSpar 20 mg by mouth twice a day for anxiety -Patient was counseled on the need for medication compliance and appropriate follow-up at mental health and also primary care for medical issues. Patient verbalized understanding and agreed. -Social work to arrange for and conduct family meeting to ensure safety upon discharge and answer any questions/concerns. Social work also to arrange for patients follow up appointments with [facility] for psychiatric care along with follow up with primary care provider. -Patient counseled on abstaining from recreational drugs and marijuana and alcohol. Was informed/educated on the adverse effects on their physical and mental health. Patient verbally agreed and understood. Patient was offered substance abuse treatment however declined at this time. -Patient was instructed to return to the hospital or seek immediate medical care if their psychiatric or medical symptoms do worsen or reoccur. -Psychoeducation and supportive therapy provided to patient. Risks and benefits of pharmacological treatment versus the risks and benefits of nontreatment weight and discussed. Informed consent discussion held. Common side effects of psychotropics discussed such as, but not limited to headache, GI disturbance, sexual dysfunction, movement disorders, sedation, and orthostatic hypotension. Life threatening and blackbox warnings of prescribed medications also discussed. Potential risks of operating a vehicle or heavy machinery discussed with patient at length. Advised on importance of compliance and a reliable and responsible manner. Patient advised to review FDA consumer labeling of all medications prior to taking. Patient verbalized understanding of potential risks, and agrees with current treatment plan. Patient advised to medically contact physician/emergency personnel if any acute changes in condition occur. Laboratory Results WBC 5.8 k/uL (3.8-10.6) 03/27/21 06:45 RBC 5.30 m/uL (4.30-5.90) 03/27/21 06:45 Hgb 15.6 gm/dL (13.0-17.5) 03/27/21 06:45 Hct 47.4 % (39.0-53.0) 03/27/21 06:45 MCV 89.5 fL (80.0-100.0) 03/27/21 06:45 MCH 29.4 pg (25.0-35.0) 03/27/21 06:45 MCHC 32.8 g/dL (31.0-37.0) 03/27/21 06:45 RDW 12.9 % (11.5-15.5) 03/27/21 06:45 Plt Count 276 k/uL (150-450) 03/27/21 06:45 MPV 7.7 03/27/21 06:45 Neutrophils % 50 % 03/27/21 06:45 Lymphocytes % 36 % 03/27/21 06:45 Monocytes % 8 % 03/27/21 06:45 Eosinophils % 2 % 03/27/21 06:45 Basophils % 1 % 03/27/21 06:45 Neutrophils # 2.9 k/uL (1.3-7.7) 03/27/21 06:45 Lymphocytes # 2.1 k/uL (1.0-4.8) 03/27/21 06:45 Monocytes # 0.5 k/uL (0-1.0) 03/27/21 06:45 Eosinophils # 0.1 k/uL (0-0.7) 03/27/21 06:45 Basophils # 0.1 k/uL (0-0.2) 03/27/21 06:45 Sodium 139 mmol/L (137-145) 03/27/21 06:45 Potassium 3.9 mmol/L (3.5-5.1) 03/27/21 06:45 Chloride 107 mmol/L (98-107) 03/27/21 06:45 Carbon Dioxide 24 mmol/L (22-30) 03/27/21 06:45 Anion Gap 8 mmol/L 03/27/21 06:45 BUN 11 mg/dL (9-20) 03/27/21 06:45 Creatinine 0.87 mg/dL (0.66-1.25) 03/27/21 06:45 Est GFR (CKD-EPI)AfAm >90 (>60 ml/min/1.73 sqM) 03/27/21 06:45 Est GFR (CKD-EPI)NonAf >90 (>60 ml/min/1.73 sqM) 03/27/21 06:45 Glucose 98 mg/dL (74-99) 03/27/21 06:[address] Glu mg/dL 111 03/27/21 06:45 Hemoglobin A1c 5.5 % (4.0-6.0) 03/27/21 06:45 Calcium 9.5 mg/dL (8.4-10.2) 03/27/21 06:45 Total Bilirubin 0.6 mg/dL (0.2-1.3) 03/27/21 06:45 AST 33 U/L (17-59) 03/27/21 06:45 ALT 40 U/L (4-49) 03/27/21 06:45 Alkaline Phosphatase 68 U/L (38-126) 03/27/21 06:45 Total Protein 6.7 g/dL (6.3-8.2) 03/27/21 06:45 Albumin 4.1 g/dL (3.5-5.0) 03/27/21 06:45 TSH 5.340 mIU/L (0.465-4.680) H 03/27/21 06:45 Arkoe 0.4 mmol/L 03/31/21 07:15 Allergies Allergy/AdvReac Type Severity Reaction Status Date / Time No Known Allergies Allergy Verified 03/26/21 20:52 Patient Condition at Discharge: Stable Plan - Discharge Summary Discharge Rx Participant: No New Discharge Prescriptions: New LORazepam [Ativan] 1 mg PO HS PRN 3 Days #3 tab PRN Reason: Insomnia Nicotine 14Mg/24Hr Patch [Habitrol] 1 patch TRANSDERM DAILY 30 Days patch Paliperidone IM [Invega Sustenna] 156 mg IM QMONTHLY #1 syr Lidocaine 5% Patch [Lidoderm 5% Patch] 1 patch TOPICAL Q24H 30 Days patch Arkoe Carbonate 900 mg PO HS 30 Days cap Arkoe Carbonate 300 mg PO DAILY 30 Days cap busPIRone HCl [Buspar] 20 mg PO BID 30 Days tab Continue Buprenorphine HCl/Naloxone HCl [Suboxone 8 mg-2 mg Sl Film] 0.5 film SL DAILY Discontinued Mirtazapine [Remeron] 15 mg PO HS 30 Days tab ARIPiprazole [Abilify] 5 mg PO DAILY 30 Days tab diphenhydrAMINE [Benadryl] 50 mg PO HS 30 Days cap busPIRone HCl [Buspar] 15 mg PO BID 30 Days tab Nicotine 14Mg/24Hr Patch [Habitrol] 1 patch TRANSDERM DAILY 14 Days patch LORazepam [Ativan] 1 mg PO HS 3 Days #3 tab Discharge Medication List Buprenorphine HCl/Naloxone HCl [Suboxone 8 mg-2 mg Sl Film] 0.5 film SL DAILY 02/03/21 [History] LORazepam [Ativan] 1 mg PO HS PRN 3 Days #3 tab 03/26/21 [Rx] Lidocaine 5% Patch [Lidoderm 5% Patch] 1 patch TOPICAL Q24H 30 Days patch 04/01/21 [Rx] Arkoe Carbonate 300 mg PO DAILY 30 Days cap 04/01/21 [Rx] Arkoe Carbonate 900 mg PO HS 30 Days cap 04/01/21 [Rx] Nicotine 14Mg/24Hr Patch [Habitrol] 1 patch TRANSDERM DAILY 30 Days patch 04/01/21 [Rx] Paliperidone IM [Invega Sustenna] 156 mg IM QMONTHLY #1 syr 04/01/21 [Rx] busPIRone HCl [Buspar] 20 mg PO BID 30 Days tab 04/01/21 [Rx] Follow up Appointment(s)/Referral(s): [facility] [Outside] - 04/06/21 8:30 am (Doctor Apt: MONROE Jj Tuesday04/06/2021 at 8:30 Caseholder Apt: Dick Castro Tuesday04/06/2021 at 9:15 [address] [facility].) Zurdo Vera DO [Primary Care Provider] - 1-2 days Patient Instructions/Handouts: How to Stop Smoking (DC), Bipolar Disorder (DC), Depression (DC) Activity/Diet/Wound Care/Special Instructions: Activity and diet as tolerated. Avoid the use of street drugs and alcohol. Take all medications as prescribed. When you are in need of refills on your medications please contact your medical provider and/or outpatient psychiatrist to have this done. Please go to scheduled outpatient appointment for aftercare treatment. If symptoms return or become worse, call the crisis line at and/or go to the nearest emergency room for evaluation. Discharge Disposition: HOME SELF-CARE
== END 2021-04-01 12:23 | disposition home or self-care (01) | DRG 885 ==
LOC: EC 20:39 → 3MHU 03-27 02:32
PROVIDERS: ADMIT Psychiatry & Neurology Psychiatry; ATTEND Psychiatry & Neurology Psychiatry
DX: F31.5 Bipolar disorder, current episode depressed, severe, with psychotic features (principal); F11.10 Opioid abuse, uncomplicated; F12.10 Cannabis abuse, uncomplicated; F17.210 Nicotine dependence, cigarettes, uncomplicated; F90.9 Attention-deficit hyperactivity disorder, unspecified type; G89.29 Other chronic pain; M54.5 Low back pain; F41.9 Anxiety disorder, unspecified; Z63.0 Problems in relationship with spouse or partner; Z79.899 Other long term (current) drug therapy; G47.00 Insomnia, unspecified; Z91.14 Patient's other noncompliance with medication regimen; Z91.19 Patient's noncompliance with other medical treatment and regimen; Z71.6 Tobacco abuse counseling; Z86.14 Personal history of Methicillin resistant Staphylococcus aureus infection
CPT/HCPCS: 80053; 80178; 82075; 83036; 84443; 85025; 99285

== ENCOUNTER 2021-11-04 14:06 | Inpatient (IN) | payer BC ==
--- NOTE | 2021-11-04 14:42 | ED ---
General Adult HPI - General Chief complaint: Psychiatric Symptoms Stated complaint: mental health Time Seen by Provider: 11/04/21 14:19 Source: patient, family Mode of arrival: ambulatory Limitations: no limitations - History of Present Illness Initial comments: Dictation was produced using [employer] dictation software. please excuse any grammatical, word or spelling errors. Chief Complaint: Patient is 31-year-old male with past medical psychiatric history. Patient states that he's been feeling depressed History of Present Illness: 31-year-old male he has history of psychiatric illness. He thought perhaps after evaluation in the past that he had bipolar disease but after further evaluation he was told by psychiatrist that he did it. Patient today's here in the emergency department seeking help for feelings of depression and suicidality. He does not have a specific plan. Patient is not homicidal. He presents with mother. he has no medical complaints. The ROS documented in this emergency department record has been reviewed and confirmed by me. Those systems with pertinent positive or negative responses have been documented in the HPI. All other systems are other negative and/or noncontributory. PHYSICAL EXAM: General Impression: Alert and oriented x3, not in acute distress HEENT: Normocephalic atraumatic, extra-ocular movements intact, pupils equal and reactive to light bilaterally, mucous membranes moist. Cardiovascular: Heart regular rate and rhythm Chest: Able to complete full sentences, no retractions, no tachypnea Abdomen: abdomen soft, non-tender, non-distended, no organomegaly Musculoskeletal: Pulses present and equal in all extremities, no peripheral edema Motor: no focal deficits noted Neurological: CN II-XII grossly intact, no focal motor or sensory deficits noted Skin: Intact with no visualized rashes Psych: Tearful ED course: 31-year-old male presents emergency department seeking psychiatric help for depression and suicidal ideation. He does not have a specific plan. Tearful at the bedside. He allegedly has past medical history of acute psychosis with associated paranoia. He has been admitted to inpatient psychiatry in the past. vital signs upon arrival are within acceptable limits. Patient evaluated by EPS and will be admitted to inpatient psychiatry unit. - Related Data Home Medications Medication Instructions Recorded Confirmed Atomoxetine HCl 25 mg PO DAILY 11/04/21 11/04/21 Dextroamphetamine/Amphetamine 25 mg PO DAILY 11/04/21 11/04/21 [Adderall Xr] Dextroamphetamine/Amphetamine 20 mg PO DAILY 11/04/21 11/04/21 [Adderall] Escitalopram [Lexapro] 20 mg PO DAILY 11/04/21 11/04/21 LORazepam [Ativan] 0.5 mg PO BID 11/04/21 11/04/21 lamoTRIgine [LaMICtal] 200 mg PO DAILY 11/04/21 11/04/21 Allergies Allergy/AdvReac Type Severity Reaction Status Date / Time No Known Allergies Allergy Verified 11/04/21 14:46 Review of Systems ROS Statement: Those systems with pertinent positive or pertinent negative responses have been documented in the HPI. ROS Other: All systems not noted in ROS Statement are negative. Past Medical History Past Medical History: No Reported History History of Any Multi-Drug Resistant Organisms: MRSA Date of last positivie culture/infection: 01/29/2010 MDRO Source:: abd Past Surgical History: Back Surgery Past Anesthesia/Blood Transfusion Reactions: No Reported Reaction Past Psychological History: ADD/ADHD, Anxiety Smoking Status: Current every day smoker Past Alcohol Use History: Rare Past Drug Use History: Marijuana, Opiates General Exam Limitations: no limitations Course Vital Signs 11/04/21 14:13 Temperature 97.6 F Pulse Rate 89 Respiratory 18 Rate Blood Pressure 133/81 O2 Sat by Pulse 98 Oximetry Disposition Clinical Impression: Depression, Suicidal ideation Disposition: ADMITTED IP TO THIS HOSP Condition: Fair Referrals: Zurdo Vera DO [Primary Care Provider] - 1-2 days
[2021-11-04] MEDS ORDERED: LORazepam 1 MG TAB PO STA (19:57)
[2021-11-04] MEDS ORDERED: ACETAMINOPHEN TAB 325 MG TAB PO STA (19:58)
[2021-11-05] MEDS ORDERED: hydrOXYzine pamoate 25 MG CAP PO PRN
[2021-11-05] MEDS ORDERED: ACETAMINOPHEN TAB 325 MG TAB PO PRN
[2021-11-05] MEDS ORDERED: LORazepam 1 MG TAB PO PRN
[2021-11-05] MEDS ORDERED: LORazepam 2 MG/ML INJ IM PRN
[2021-11-05] MEDS ORDERED: HALOPERIDOL LACTATE 5 MG/ML 1 ML VIAL IM PRN
[2021-11-05] MEDS ORDERED: MAG HYDROX/AL HYDROX/SIMETH 30 ML CUP PO PRN
[2021-11-05] MEDS ORDERED: MAGNESIUM HYDROXIDE 2,400 MG/10 ML CUP PO PRN
[2021-11-05] MEDS ORDERED: haloperidoL 5 MG TAB PO PRN
[2021-11-05] MEDS: traZODone HCL 50 MG TAB PO PRN ×2 (00:11→21:32)
[2021-11-05] MEDS: NICOTINE 14MG/24HR PATCH TRANSDERM SCH ×2 (01:16→08:19)
[2021-11-05 06:13] VITALS: RESP 16; TEMP 97.4
[2021-11-05 07:46] LABS: Basophils % (A) 0 %; Eosinophils # (A) 0.2 k/uL (0-0.7); Eosinophils % (A) 2 %; HCT 45.9 % (39.0-53.0); HGB 15.5 gm/dL (13.0-17.5); Lymphocytes # (A) 2.3 k/uL (1.0-4.8); Lymphocytes % (A) 24 %; MCH 30.3 pg (25.0-35.0); MCHC 33.7 g/dL (31.0-37.0); Mean Platelet Volume 7.6; Monocytes # (A) 0.5 k/uL (0-1.0); Monocytes % (A) 6 %; Neutrophils # (A) 6.4 k/uL (1.3-7.7); Neutrophils % (A) 67 %; Platelet Count 291 k/uL (150-450); RDW 12.7 % (11.5-15.5); WBC 9.6 k/uL (3.8-10.6)
[2021-11-05] MEDS: lamoTRIgine 100 MG TAB PO SCH (08:19)
[2021-11-05 08:20] LABS: ALT 366 U/L (4-49); AST 245 U/L (17-59); African American GFR (CKD) >90 (>60 ml/min/1.73 sqM); Albumin 4.3 g/dL (3.5-5.0); Alkaline Phosphatase 42 U/L (38-126); Anion Gap 7 mmol/L; Blood Urea Nitrogen 17 mg/dL (9-20); Calcium 9.5 mg/dL (8.4-10.2); Carbon Dioxide 25 mmol/L (22-30); Chloride 107 mmol/L (98-107); Glucose 108 mg/dL (74-99); Non-African American GFR(CKD) >90 (>60 ml/min/1.73 sqM); Potassium 4.4 mmol/L (3.5-5.1); Sodium 139 mmol/L (137-145); Total Bilirubin 1.4 mg/dL (0.2-1.3); Total Protein 7.3 g/dL (6.3-8.2)
[2021-11-05] MEDS ORDERED: ATOMOXETINE HCL 25 MG PO SCH (09:00)
[2021-11-05] MEDS ORDERED: ESCITALOPRAM 20 MG TAB PO SCH (09:00)
[2021-11-05] MEDS: DEXTROAMPHETAMINE PO SCH (11:31)
[2021-11-05] MEDS: AMPHETAMINE PO SCH (11:31)
[2021-11-05] MEDS: NON FORMULARY DRUG (Dextroamphetamine/Amphetamine [Adderall] 20 MG Tablet) PO SCH (11:31)
[2021-11-05] MEDS ORDERED: IBUPROFEN 600 MG TAB PO PRN (11:35)
[2021-11-05] MEDS: LORazepam 0.5 MG TAB PO PRN (13:40)
--- NOTE | 2021-11-05 15:57 | P.HP ---
Psychiatric H&P - . H&P Date: 11/05/21 History & Physical: IDENTIFYING DATA: Dinh is a 31-year-old single male admitted to the psychiatric unit voluntarily with complaints of adverse effects to psychotropic medication. HISTORY OF PRESENT ILLNESS: I reviewed the medical record and interviewed the patient. Although he attributed to admission to adverse effects of antipsychotic medication, eventually revealed that he became markedly distressed when his outpatient psychiatrist told him that she will not continue his prescriptions of Adderall until he enters a substance abuse treatment program. In addition he continues to perseverate about his divorce. He provided a detailed and circumstantial history of adverse reaction to various antipsychotic medications and reexperienced similar problems when his outpatient provider prescribed Geodon. The adverse reactions were primarily subjective and he described what could best be understood as feelings of depersonalization and derealization. He talked about feeling emotionally numb, distant from other people, believing that other people were "robots" and that he was "suggestible." He feels that these symptoms or problems have improved since admission because he is not taking the antipsychotic. He was admitted to this unit involuntarily in March 2021 and discharged with the diagnoses of bipolar disorder with psychotic features, opiate use, cannabis use and tobacco use. His discharge medications included lithium, Invega and BuSpar. We referred him to [facility] for aftercare and management of his outpatient order. Once the order he transferred his care to a private psychiatrist in [facility]. The psychiatrist prescribed him both Adderall and Adderall XR for the treatment of ADHD. He alleged that he was diagnosed with ADHD in middle school and has been treated with psychostimulants intermittently since then. He talked about only taking Adderall when he needs to concentrate such as when he is working or is engaged in other activities that require concentration. He also has a history of an opiate use disorder. He described a orthopedic injury in his early 20s for which she was prescribed various opiate pain medication. He eventually became dependent on OxyContin. The orthopedic surgeon referred him to a pain specialist. He was discharged from the pain clinic when he violated the terms of the pain contract. He then purchase opiates on the black market for "for years" until he was prescribed Suboxone by private physician. He continued the Suboxone until about a year ago when he gradually "weaned himself off." He stated that he "occasionally" takes a small piece of the sublingual Suboxone whenever he experiences "craving". When he told his private psychiatrist about his Suboxone use, the psychiatrist "in his opinion" "overreacted" and told him that she would taper him off the Adderall and start Strattera. In addition, she would not consider restarting Adderall until he enters a substance abuse treatment program. He feel aggrieved by her action he sought he couldn't trust her and confide in her. He denied that he uses the Suboxone regularly and denied that he is using other opiate medications. 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 During interview he denied having thoughts of or suicide. Reports that his anxiety has improved since admission. He continues to have feelings of depression but the depression is not overwhelming or uncontrollable. He denied obsessions or compulsions. He denied having ideas reference, thought insertion, thought broadcasting or thought control. He denied that he was experiencing periods of elevated mood or sustained irritability prior to admission. He did not submit a sample for urine drug screen. PAST PSYCHIATRIC HISTORY: This is his third admission to our psychiatric unit. He was first admitted in January 2021 with complaints of paranoia. We discharge him with the diagnosis of bipolar disorder, cannabis use disorder and ADHD. He presented to the 2 months after discharge on a pickup order for noncompliance with treatment. This admission history notes that he has significant signs of a bipolar illness. That he was not sleeping for more than 1520 minutes per day, he spent $5000 on closing, and endorses flight of ideas, racing thoughts, mood lability and paranoia. He has a history of ADHD as noted above diagnosed in middle school. He is been treated with various psychostimulant medications. PAST MEDICAL HISTORY: Low back pain, tobacco use disorder ALLERGIES: NO KNOWN DRUG ALLERGIES SUBSTANCE USE HISTORY: See above FAMILY PSYCHIATRIC/SUBSTANCE USE HISTORY: The patient's mother is reportedly diagnosed bipolar disorder and is on lithium. Father with history of depression. LEGAL HISTORY: He was incarcerated in [place] for violation of a personal protective order SOCIAL HISTORY: Was born and raised in [place]. He is currently from his of 2 years. She moved to [place] to live with her family. After their separation he became aware that she was and has since delivered the child. He graduated from high school and has 2 years of college. 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 MENTAL STATUS EXAM: He presented as a tall, casually groomed young male who was pleasant on approach. He made eye contact and appeared to attend to interview. He had no distinguishing features or prominent physical abnormal ities. He had a distressed facial expression. He was alert and oriented to person, place and time. He showed no abnormality of psychomotor activity he was not restless, agitated or impulsive. His gait was slow but steady. Her speech was spontaneous with slight increase in rhythm but normal volume. His affect was dysphoric. He denied suicidal ideation, wishes homicidal ideation. He expressed feelings of hopelessness and helplessness regarding his divorce, his child, and difficulty with his outpatient psychiatrist. He ruminated about the above difficulties. He did not express ideas reference, paranoid ideation or delusions. His thinking was abstract, coherent and goal directed. He denied hallucinations and did not appear to be responding to internal stimuli. STRENGTHS: Supportive family, engagement with outpatient mental health services, stable employment, good physical health WEAKNESSES: History of substance use problems, divorce, loss of custody of his child IMPRESSION: He is a divorce 31-year-old male was admitted to the [facility] for the third time in one year. During a prior admissions he presented with manic-like features and was diagnosed with a bipolar illness. During this admission he presents more anxious and distressed. He perseverates about the adverse effects of antipsychotic medications prescribed for treatment of the bipolar illness. However, he is more distressed by the possibility of no longer receiving prescriptions for psychostimulant medications after violating in agreement with his primary psychiatrist regarding the use of other drugs of abuse. He did not express suicidal or homicidal ideation and did not show clear evidence of elevated mood, sustained irritability, rapid speech, flight of ideas or impulsivity. He is guarded but did not express clear paranoid ideation or delusional thoughts. He should be treated inpatient basis with combination of psychopharmacology and multimodal therapy. PRINCIPLE DIAGNOSIS: Bipolar disorder by history, ADHD, opiate use disorder, divorce RECOMMENDATION: Admit to the psychiatric unit involuntarily. Safety precautions. Consult medicine for initial physical exam and medical history. unit control worker completed initial psychosocial assessment to coordinate discharge and aftercare. Begin Prozac 20 mg daily for treatment of depression and anxiety symptoms. Continue Lamictal 20 mg daily, hold Geodon 20 mg at bedtime and discontinue Strattera. Desyrel 50 mg at bedtime when necessary for sleep. Hold his outpatient prescriptions of Adderall and Adderall XR while he was inpatient. Encourage participation in therapeutic groups to activities. Evaluate clinical status response to treatment daily basis. Allergies Allergy/AdvReac Type Severity Reaction Status Date / Time No Known Allergies Allergy Verified 11/04/21 14:46 Vital Signs Temp 97.4 F L 11/05/21 06:11 Pulse 84 11/05/21 06:11 Resp 16 11/05/21 06:11 BP 122/64 11/05/21 06:11 Pulse Ox 98 11/04/21 14:13 Intake & Output 11/04/21 11/05/21 11/05/21 18:59 06:59 18:59 Weight 113.398 kg 122.6 kg Laboratory Last Values WBC 9.6 k/uL (3.8-10.6) 11/05/21 07:15 RBC 5.10 m/uL (4.30-5.90) 11/05/21 07:15 Hgb 15.5 gm/dL (13.0-17.5) 11/05/21 07:15 Hct 45.9 % (39.0-53.0) 11/05/21 07:15 MCV 90.0 fL (80.0-100.0) 11/05/21 07:15 MCH 30.3 pg (25.0-35.0) 11/05/21 07:15 MCHC 33.7 g/dL (31.0-37.0) 11/05/21 07:15 RDW 12.7 % (11.5-15.5) 11/05/21 07:15 Plt Count 291 k/uL (150-450) 11/05/21 07:15 MPV 7.6 11/05/21 07:15 Neutrophils % 67 % 11/05/21 07:15 Lymphocytes % 24 % 11/05/21 07:15 Monocytes % 6 % 11/05/21 07:15 Eosinophils % 2 % 11/05/21 07:15 Basophils % 0 % 11/05/21 07:15 Neutrophils # 6.4 k/uL (1.3-7.7) 11/05/21 07:15 Lymphocytes # 2.3 k/uL (1.0-4.8) 11/05/21 07:15 Monocytes # 0.5 k/uL (0-1.0) 11/05/21 07:15 Eosinophils # 0.2 k/uL (0-0.7) 11/05/21 07:15 Basophils # 0.0 k/uL (0-0.2) 11/05/21 07:15 Sodium 139 mmol/L (137-145) 11/05/21 07:15 Potassium 4.4 mmol/L (3.5-5.1) 11/05/21 07:15 Chloride 107 mmol/L (98-107) 11/05/21 07:15 Carbon Dioxide 25 mmol/L (22-30) 11/05/21 07:15 Anion Gap 7 mmol/L 11/05/21 07:15 BUN 17 mg/dL (9-20) 11/05/21 07:15 Creatinine 0.95 mg/dL (0.66-1.25) 11/05/21 07:15 Est GFR (CKD-EPI)AfAm >90 (>60 ml/min/1.73 sqM) 11/05/21 07:15 Est GFR (CKD-EPI)NonAf >90 (>60 ml/min/1.73 sqM) 11/05/21 07:15 Glucose 108 mg/dL (74-99) H 11/05/21 07:[address] Glu mg/dL 114 11/05/21 07:15 Hemoglobin A1c 5.6 % (0.0-6.0) 11/05/21 07:15 Calcium 9.5 mg/dL (8.4-10.2) 11/05/21 07:15 Total Bilirubin 1.4 mg/dL (0.2-1.3) H 11/05/21 07:15 AST 245 U/L (17-59) H 11/05/21 07:15 ALT 366 U/L (4-49) H 11/05/21 07:15 Alkaline Phosphatase 42 U/L (38-126) 11/05/21 07:15 Total Protein 7.3 g/dL (6.3-8.2) 11/05/21 07:15 Albumin 4.3 g/dL (3.5-5.0) 11/05/21 07:15 TSH 0.689 mIU/L (0.465-4.680) 11/05/21 07:15 Coronavirus (PCR) Not Detected (Not Detectd) 11/04/21 19:58 11/05/21 15:28
[2021-11-05 16:21] LABS: Chol/HDL Ratio 10.49 Ratio
[2021-11-05] MEDS ORDERED: diphenhydrAMINE 25 MG CAP PO PRN (22:45)
--- NOTE | 2021-11-05 22:45 | P.MDCNMH ---
History of Present Illness H&P Date: 11/05/21 Chief Complaint: Medical evaluation 31-year-old male with anxiety and depression Patient comes into the ER with suicidal thoughts and overwhelming depression seeking help. Currently he denies any medical concerns except for slight swelling and skin flushing of his bilateral hands and feet. Denies any itching denies any pain denies any discomfort. He does not recall any specific ALLERGIES. He claims that this been going on for a while. Otherwise he denies any difficulty breathing difficulty in swallowing denies any respiratory symptoms denies any itching. Patient blood work revealed elevated liver enzymes and elevated lipid profile. Patient denies any excessive alcohol intake or recreational drugs he does admit to smoking cigarettes Review of Systems Pertinent positives as noted in HPI. All other systems were reviewed and are negative Past Medical History Past Medical History: No Reported History History of Any Multi-Drug Resistant Organisms: MRSA Date of last positivie culture/infection: 01/29/2010 MDRO Source:: abd Past Surgical History: Back Surgery Past Anesthesia/Blood Transfusion Reactions: No Reported Reaction Past Psychological History: ADD/ADHD, Anxiety Smoking Status: Current every day smoker Past Alcohol Use History: Rare Past Drug Use History: Marijuana, Opiates - Past Family History Family Family Medical History: No Reported History Medications and Allergies Home Medications Medication Instructions Recorded Confirmed Type Atomoxetine HCl 25 mg PO DAILY 11/04/21 11/04/21 History Dextroamphetamine/Amphetamine 25 mg PO DAILY 11/04/21 11/04/21 History [Adderall Xr] Dextroamphetamine/Amphetamine 20 mg PO DAILY 11/04/21 11/04/21 History [Adderall] Escitalopram [Lexapro] 20 mg PO DAILY 11/04/21 11/04/21 History LORazepam [Ativan] 0.5 mg PO BID 11/04/21 11/04/21 History lamoTRIgine [LaMICtal] 200 mg PO DAILY 11/04/21 11/04/21 History Allergies Allergy/AdvReac Type Severity Reaction Status Date / Time No Known Allergies Allergy Verified 11/04/21 14:46 Physical Exam Vitals: Vital Signs Temp Pulse Resp BP 11/05/21 06:11 97.4 F L 84 16 122/64 Intake and Output 11/05/21 11/05/21 11/05/21 06:59 14:59 22:59 Other: Weight 122.6 kg Constitutional: No acute distress, conversant, pleasant Eyes: Anicteric sclerae, moist conjunctiva, Pupils equal round reactive to light ENMT: NC/AT Oropharynx clear, no erythema, or exudates Neck: Supple, no masses, or JVD No carotid bruits No thyromegaly Lungs: Clear to auscultation Clear to percussion Normal respiratory effort, no accessory muscle use Cardiovascular: Heart regular in rate and rhythm, No murmurs, gallops, or rubs No peripheral edema Abdominal: Soft Nontender, no guarding, rebound or rigidity Abdomen moving with respiration Normoactive bowel sounds No hepatomegaly, No splenomegaly No palpable mass No abdominal wall hernia noted Skin: Skin flushing over bilateral feet and hands with trace edema warm to the touch, no tenderness to palpation , otherwise mucous membranes are unremarkable no signs of petechiae , hives or urticaria over other parts of the skin Extremities: No digital cyanosis No clubbing Pedal pulses intact and symmetrical Radial pulses intact and symmetrical No calf tenderness Psychiatric: Alert and oriented to person, place and time Neuro Muscles Strength 5/5 in all 4 extremities Sensation to light touch grossly present throughout Cranial nerves II-XII grossly intact No focal sensory deficits Lymphatics: no palpable cervical or supraclavicular , or inguinal lymph nodes Cranial Nerve Examination - Cranial Nerves Cranial Nerve II- Optic: Intact Cranial Nerve III- Oculomotor: Intact Cranial Nerve IV- Trochlear: Intact Cranial Nerve V- Trigeminal: Intact Cranial Nerve - Abducens: Intact Cranial Nerve VII- Facial: Intact Cranial Nerve VIII- Auditory: Intact Cranial Nerve IX- Glossopharyngeal: Intact Cranial Nerve X- Vagus: Intact Cranial Nerve XI- Accessory: Intact Cranial Nerve XII- Hypoglossal: Intact Results CBC & Chem 7: 11/05/21 07:15 11/05/21 07:15 Labs: Abnormal Lab Results - Last 24 Hours (Table) 11/05/21 Range/Units 07:15 Glucose 108 H (74-99) mg/dL Total Bilirubin 1.4 H (0.2-1.3) mg/dL AST 245 H (17-59) U/L ALT 366 H (4-49) U/L Triglycerides 268.00 H (0.00-149.00) mg/dL Cholesterol 319.00 H (0.00-200.00) mg/dL LDL Cholesterol, Calc 235.0 H (0.0-131.0) mg/dL VLDL Cholesterol, Calc 53.60 H (5.00-40.00) mg/dL HDL Cholesterol 30.40 L (40.00-60.00) mg/dL Assessment and Plan Assessment: Depression and suicidal ideation Management per psych Skin flushing over bilateral hand and feet Benadryl when necessary for symptomatic control Elevated liver enzymes Check hepatitis panel Avoid hepatotoxic meds, discontinue Tylenol Check liver ultrasound Elevated cholesterol Patient will require to be started on cholesterol lowering medication statin However due to elevated liver enzymes will hold off Patient need to be kept on cardiac diet and lifestyle modification to help improve his cholesterol levels Thank you for allowing us to participate in the care of this patient. We will follow peripherally. Do not hesitate to contact us with questions. Someone can be reached from the [facility] hospitalist group at all hours of the day at [phone].
[2021-11-06 08:03] LABS: ALT 284 U/L (4-49); AST 124 U/L (17-59); African American GFR (CKD) >90 (>60 ml/min/1.73 sqM); Albumin 4.4 g/dL (3.5-5.0); Alkaline Phosphatase 39 U/L (38-126); Anion Gap 6 mmol/L; Blood Urea Nitrogen 18 mg/dL (9-20); Calcium 9.3 mg/dL (8.4-10.2); Carbon Dioxide 24 mmol/L (22-30); Chloride 108 mmol/L (98-107); Glucose 103 mg/dL (74-99); Non-African American GFR(CKD) >90 (>60 ml/min/1.73 sqM); Potassium 4.3 mmol/L (3.5-5.1); Sodium 138 mmol/L (137-145); Total Bilirubin 1.4 mg/dL (0.2-1.3); Total Protein 7.6 g/dL (6.3-8.2)
[2021-11-06] MEDS ORDERED: FLUoxetine HCL 20 MG CAP PO SCH (09:00)
[2021-11-06 09:11] VITALS: BP 130/69; PULSE 85
[2021-11-06] MEDS: AMPHETAMINE PO SCH (09:56)
[2021-11-06] MEDS: NON FORMULARY DRUG (Dextroamphetamine/Amphetamine [Adderall] 20 MG Tablet) PO SCH (09:56)
[2021-11-06] MEDS: DEXTROAMPHETAMINE PO SCH (09:56)
[2021-11-06] MEDS: lamoTRIgine 100 MG TAB PO SCH (09:57)
[2021-11-06] MEDS: LORazepam 0.5 MG TAB PO PRN (09:58)
[2021-11-06] MEDS: NICOTINE 14MG/24HR PATCH TRANSDERM SCH (09:58)
--- NOTE | 2021-11-06 10:08 | US ---
EXAMINATION TYPE: US liver DATE OF EXAM: 11/06/2021 COMPARISON: NONE CLINICAL HISTORY: Elevated liver enzymes. EXAM MEASUREMENTS: Liver Length: 14.8 cm Gallbladder Wall: 0.2 cm CBD: 0.4 cm Right Kidney: 11.2 x 5.4 x 5.2 cm Pancreas: obscured by overlying midline bowel gas Liver: wnl Gallbladder: wnl Evidence for sonographic Chavez's sign: no CBD: wnl Right Kidney: wnl Visualized liver is homogeneous in echotexture without worrisome focal intrahepatic mass or hepatic d uctal dilatation. No surrounding ascites. Gallbladder within normal limits. No right-sided hydronephr osis. IMPRESSION: No worrisome intrahepatic mass or intrahepatic ductal dilatation seen.
--- NOTE | 2021-11-06 14:55 | P.DS ---
Providers Date of admission: 11/04/21 23:05 Attending physician: Vick Garcia MD Consults: 11/04/21 23:28 Consult Physician Routine Consulting Provider: [facility] Consult Reason/Comments: history and physical/medical management Do you want consulting provider notified?: Yes Primary care physician: Zurdo DiPonio - Discharge Diagnosis(es) (1) Suicidal ideation Current Visit: Yes Status: Chronic Priority: Low (2) Bipolar disorder Current Visit: Yes Status: Chronic Priority: Medium (3) ADHD (attention deficit hyperactivity disorder) Current Visit: Yes Status: Chronic Priority: Medium (4) Opioid use disorder, severe, dependence Current Visit: Yes Status: Chronic Priority: Medium (5) Marital conflict involving divorce Current Visit: Yes Status: Chronic Priority: Medium (6) Acute anxiety Current Visit: No Status: Chronic Priority: Medium Hospital Course: HISTORY: Dinh is a 31-year-old single male admitted to the psychiatric unit voluntarily with complaints of adverse effects to psychotropic medication. Although he attributed to admission to adverse effects of antipsychotic medication, eventually revealed that he became markedly distressed when his outpatient psychiatrist told him that she will not continue his prescriptions of Adderall until he enters a substance abuse treatment program. In addition he continues to perseverate about his divorce. He also has a history of an opiate use disorder. He described a orthopedic injury in his early 20s for which she was prescribed various opiate pain medication. He eventually became dependent on OxyContin. The orthopedic surgeon referred him to a pain specialist. He was discharged from the pain clinic when he violated the terms of the pain contract. He then purchase opiates on the black market for "for years" until he was prescribed Suboxone by private physician. He continued the Suboxone until about a year ago when he gradually "weaned himself off." He stated that he "occasionally" takes a small piece of the sublingual Suboxone whenever he experiences "craving". When he told his private psychiatrist about his Suboxone use, the psychiatrist "in his opinion" "overreacted" and told him that she would taper him off the Adderall and start Strattera. In addition, she would not consider restarting Adderall until he enters a substance abuse treatment program. He feel aggrieved by her action he sought he couldn't trust her and confide in her. He denied that he uses the Suboxone regularly and denied that he is using other opiate medications. 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 HOSPITAL COURSE: We admitted him voluntarily to the psychiatric unit under the care of this typewriter assembler. We provided a comprehensive biopsychosocial assessment. Insulting powerplant operator completed initial physical exam and medical history and diagnosis given flushing, elevated liver enzymes and elevated cholesterol. The medical office clerk recommended a liver ultrasound and consult with his primary provider regarding management of the elevated cholesterol. We addressed some of his concerns about his medications including the adverse response to Strattera. We prescribed fluoxetine 20 mg daily for the treatment of depression and anxiety and continue Lamictal 200 mg daily for treatment of bipolar illness. The computer systems consultant recommended Benadryl 25 mg 4 times a day when necessary for the management of the flushing. He did not participate in therapeutic groups and activities. He complained repeatedly of back pain that he believed was aggravated by the hospital benefits. He found little relief from Motrin 600 mg 3 times a day. He did not request Adderall during this hospitalization. He posed no management problem had no episodes of behavioral dyscontrol. The social work lecturer spoke with his provider from [facility] for behavioral health. She was unwilling to schedule a follow-up appointment until he enters into a residential substance abuse treatment program. In addition, he spoke with his mother who also encouraged him to enter into a residential substance ab use treatment program. She remains ambivalent about residential treatment and denying that his use of nonprescribed Suboxone was abuse. He posed no management problem and had no episodes of behavioral dyscontrol. MENTAL STATUS ON DISCHARGE: He presented as a tall casually groomed. male who was pleasant on approach. He made eye contact and attended to the interview. He had a blunted but bright facial expression. He was alert and oriented to person, place and time. He had developed PLT of psychomotor activity. His speech was spontaneous with slight decrease in rhythm and volume. His affect was blunted but appropriate. He denied suicidal ideation, wishes and homicidal ideation. He expressed feelings of helplessness regarding his outpatient mental health appointment and the possibility that he may not be able to receive a prescription for Adderall but denied feeling hopeless or helpless. He did not express ideas reference, paranoid ideation or delusions. His thinking was concrete but his associations were coherent, logical goal- directed. He denied hallucinations and did not appear to be responding to internal stimuli. DISPOSITION: Return to his prior address. We were unable to schedule an appointment with his prior outpatient mental health clinic due to the history of substance use. However the social work lecturer was able to schedule appointment with [facility]. His discharge medications include Lamictal 20 mg daily, Ativan 0.5 mg twice a day, Adderall 20 mg daily and Adderall XR 25 mg daily, trazodone 2050 mg at bedtime and Prozac 20 mg daily. Patient Condition at Discharge: Stable Plan - Discharge Summary New Discharge Prescriptions: New traZODone HCL [Desyrel] 50 mg PO HS PRN #30 tab PRN Reason: Insomnia FLUoxetine HCL [PROzac] 20 mg PO DAILY #30 cap Ibuprofen [Motrin] 600 mg PO TID PRN #90 tab PRN Reason: Pain Continue lamoTRIgine [LaMICtal] 200 mg PO DAILY LORazepam [Ativan] 0.5 mg PO BID Dextroamphetamine/Amphetamine [Adderall Xr] 25 mg PO DAILY Dextroamphetamine/Amphetamine [Adderall] 20 mg PO DAILY Discontinued Escitalopram [Lexapro] 20 mg PO DAILY Atomoxetine HCl 25 mg PO DAILY Discharge Medication List Dextroamphetamine/Amphetamine [Adderall Xr] 25 mg PO DAILY 11/04/21 [History] Dextroamphetamine/Amphetamine [Adderall] 20 mg PO DAILY 11/04/21 [History] LORazepam [Ativan] 0.5 mg PO BID 11/04/21 [History] lamoTRIgine [LaMICtal] 200 mg PO DAILY 11/04/21 [History] FLUoxetine HCL [PROzac] 20 mg PO DAILY #30 cap 11/06/21 [Rx] Ibuprofen [Motrin] 600 mg PO TID PRN #90 tab 11/06/21 [Rx] traZODone HCL [Desyrel] 50 mg PO HS PRN #30 tab 11/06/21 [Rx] Follow up Appointment(s)/Referral(s): [facility] [Outside] - 11/16/21 8:30 am ([employer] Grazyna Jj 11/16 @ 8:30 AM Dereje Castro 11/11 @ 12:00 PM ) Zurdo Vera DO [Primary Care Provider] - 1-2 days Patient Instructions/Handouts: How to Stop Smoking (DC), Depression (DC) Activity/Diet/Wound Care/Special Instructions: Activity and diet as tolerated. Avoid the use of street drugs and alcohol. Take all medications as prescribed. When you are in need of refills on your medications please contact your medical provider and/or outpatient psychiatrist to have this done. Please go to scheduled outpatient appointment for aftercare treatment. If symptoms return or become worse, call the crisis line at and/or go to the nearest emergency room for evaluation Discharge Disposition: HOME SELF-CARE
[2021-11-09 14:11] LABS: Hepatitis A Antibody IgM Nonreactive (Nonreactive); Hepatitis B Core IgM Nonreactive (Nonreactive); Hepatitis B Surface Antigen Nonreactive (Nonreactive); Hepatitis C IgG Antibody Nonreactive (Nonreactive)
== END 2021-11-06 15:15 | disposition home or self-care (01) | DRG 885 ==
LOC: EC 14:06 → 3MHU 23:05
PROVIDERS: ADMIT Psychiatry & Neurology Psychiatry; ATTEND Psychiatry & Neurology Psychiatry
DX: F31.9 Bipolar disorder, unspecified (principal); R45.851 Suicidal ideations; F11.20 Opioid dependence, uncomplicated; E78.00 Pure hypercholesterolemia, unspecified; F17.200 Nicotine dependence, unspecified, uncomplicated; F41.9 Anxiety disorder, unspecified; Z20.822 Contact with and (suspected) exposure to COVID-19; F90.9 Attention-deficit hyperactivity disorder, unspecified type; Z79.899 Other long term (current) drug therapy; Z81.8 Family history of other mental and behavioral disorders; Z91.19 Patient's noncompliance with other medical treatment and regimen; Z63.0 Problems in relationship with spouse or partner
CPT/HCPCS: 76705; 80053; 80061; 80074; 82075; 83036; 84443; 85025; 87635; 99285

== ENCOUNTER 2022-09-03 14:44 | Emergency (ER) | payer SELFPAY ==
[2022-09-03 15:01] VITALS: TEMP 98.6
[2022-09-03] MEDS ORDERED: SODIUM CHLORIDE 0.9% 1,000 ML IV STA (15:21)
[2022-09-03 16:00] LABS: Appearance,Urine Clear (Clear); Bilirubin,Urine Negative (Negative); Blood,Urine Negative (Negative); Color,Urine Yellow; Glucose,Urine (UA) Negative (Negative); Ketones,Urine Negative (Negative); Leukocyte Esterase,Urine Negative (Negative); Nitrite,Urine Negative (Negative); Protein,Urine Negative (Negative); Specific Gravity,Urine 1.016 (1.001-1.035); Urobilinogen,Urine <2.0 mg/dL (<2.0)
[2022-09-03 16:01] LABS: Basophils # (A) 0.1 k/uL (0-0.2); Basophils % (A) 1 %; Eosinophils # (A) 0.6 k/uL (0-0.7); Eosinophils % (A) 7 %; HCT 47.1 % (39.0-53.0); HGB 15.3 gm/dL (13.0-17.5); Lymphocytes # (A) 3.4 k/uL (1.0-4.8); Lymphocytes % (A) 38 %; MCH 28.6 pg (25.0-35.0); MCHC 32.5 g/dL (31.0-37.0); Mean Platelet Volume 7.4; Monocytes # (A) 0.7 k/uL (0-1.0); Monocytes % (A) 8 %; Neutrophils # (A) 4.1 k/uL (1.3-7.7); Neutrophils % (A) 46 %; Platelet Count 328 k/uL (150-450); RBC 5.34 m/uL (4.30-5.90); RDW 13.4 % (11.5-15.5)
[2022-09-03 16:53] LABS: ALT 70 U/L (4-49); AST 38 U/L (17-59); African American GFR (CKD) >90 (>60 ml/min/1.73 sqM); Albumin 4.1 g/dL (3.5-5.0); Alkaline Phosphatase 64 U/L (38-126); Anion Gap 6 mmol/L; Blood Urea Nitrogen 9 mg/dL (9-20); Calcium 9.1 mg/dL (8.4-10.2); Carbon Dioxide 26 mmol/L (22-30); Chloride 106 mmol/L (98-107); Glucose 102 mg/dL (74-99); Non-African American GFR(CKD) >90 (>60 ml/min/1.73 sqM); Potassium 4.5 mmol/L (3.5-5.1); Sodium 138 mmol/L (137-145); Total Bilirubin 0.6 mg/dL (0.2-1.3); Total Protein 6.8 g/dL (6.3-8.2)
[2022-09-03 17:48] VITALS: BP 148/87; PULSE 99; RESP 18
--- NOTE | 2022-09-03 17:49 | ED ---
General Adult HPI - General Chief complaint: Recheck/Abnormal Lab/Rx Stated complaint: Detox Time Seen by Provider: 09/03/22 15:15 Source: patient Mode of arrival: ambulatory Limitations: no limitations - History of Present Illness Initial comments: Patient is a 32-year-old male who presents to the emergency department seeking a detox. Patient has been using heroin for the past 6 months in the form of snorting. Last use was a couple weeks ago. He also has been using OxyContin and Xanax daily for the past couple years. Last use was today. Denies alcohol use. Patient is eager to quit, states he is going to [facility] Tuesday and they cannot get him a bed any sooner therefore he would like to stay in the hospital until admission into [facility]. He denies fever, chills, chest pain, shortness of breath, abdominal pain, nausea, vomiting, diarrhea, tremors. States at night he endorses withdrawal symptoms including anxiety with panic attacks, vomiting, diarrhea, tremors. - Related Data Home Medications Medication Instructions Recorded Confirmed Dextroamphetamine/Amphetamine 25 mg PO DAILY 11/04/21 11/04/21 [Adderall Xr] Dextroamphetamine/Amphetamine 20 mg PO DAILY 11/04/21 11/04/21 [Adderall] LORazepam [Ativan] 0.5 mg PO BID 11/04/21 11/04/21 lamoTRIgine [LaMICtal] 200 mg PO DAILY 11/04/21 11/04/21 Previous Rx's Medication Instructions Recorded FLUoxetine HCL [PROzac] 20 mg PO DAILY #30 cap 11/06/21 Ibuprofen [Motrin] 600 mg PO TID PRN #90 tab 11/06/21 traZODone HCL [Desyrel] 50 mg PO HS PRN #30 tab 11/06/21 Ondansetron Odt [Zofran Odt] 4 mg PO Q8HR PRN #10 tab 09/03/22 hydrOXYzine HCL [Atarax] 25 mg PO TID PRN #12 tab 09/03/22 Allergies Allergy/AdvReac Type Severity Reaction Status Date / Time No Known Allergies Allergy Verified 09/03/22 15:00 Review of Systems ROS Statement: Those systems with pertinent positive or pertinent negative responses have been documented in the HPI. ROS Other: All systems not noted in ROS Statement are negative. Past Medical History Past Medical History: No Reported History History of Any Multi-Drug Resistant Organisms: MRSA Date of last positivie culture/infection: 01/29/2010 MDRO Source:: abd Past Surgical History: Back Surgery Past Anesthesia/Blood Transfusion Reactions: No Reported Reaction Past Psychological History: ADD/ADHD, Anxiety Smoking Status: Current every day smoker Past Alcohol Use History: Rare Past Drug Use History: Cocaine, Heroin, Marijuana, Opiates - Past Family History Family Family Medical History: No Reported History General Exam Limitations: no limitations General appearance: alert Head exam: Present: atraumatic, normocephalic, normal inspection Eye exam: Present: normal appearance, PERRL, EOMI. Absent: scleral icterus, conjunctival injection, periorbital swelling Neck exam: Present: normal inspection. Absent: tenderness, meningismus, lymphadenopathy Respiratory exam: Present: normal lung sounds bilaterally. Absent: respiratory distress, wheezes, rales, rhonchi, stridor Cardiovascular Exam: Present: regular rate, normal rhythm, normal heart sounds. Absent: systolic murmur, diastolic murmur, rubs, gallop, clicks GI/Abdominal exam: Present: soft, normal bowel sounds. Absent: distended, tenderness, guarding, rebound, rigid Extremities exam: Present: normal inspection, full ROM, normal capillary refill Neurological exam: Present: alert, oriented X3, CN II-XII intact Psychiatric exam: Present: normal affect, normal mood Course Vital Signs 09/03/22 09/03/22 14:58 17:25 Temperature 98.6 F Pulse Rate 89 99 Respiratory 20 18 Rate Blood Pressure 143/79 148/87 O2 Sat by Pulse 97 99 Oximetry Medical Decision Making - Medical Decision Making Was pt. sent in by a medical professional or institution (, PA, POURED WALL FOREMAN, urgent care, hospital, or assisted...) When possible be specific @ -[No] Did you speak to anyone other than the patient for history (EMS, parent, family, police, friend...)? What history was obtained from this source @ -[No] Did you review nursing and triage notes (agree or disagree)? Why? @ -[I reviewed and agree with nursing and triage notes] Were old charts reviewed (outside hosp., previous admission, EMS record, old EKG, old radiological studies, urgent care reports/EKG's, assisted records)? Report findings @ -[No old charts were reviewed] Differential Diagnosis (chest pain, altered mental status, abdominal pain women, abdominal pain men, vaginal bleeding, weakness, fever, dyspnea, syncope, headache, dizziness, GI bleed, back pain, seizure, CVA, palpatations, mental health)? @ -[not applicable] EKG interpreted by me (3pts min.). @ -[As above] X-rays interpreted by me (1pt min.). @ -[None done] CT interpreted by me (1pt min.). @ -[None done] U/S interpreted by me (1pt. min.). @ -[None done] What testing was considered but not performed or refused? (CT, X-rays, U/S, labs)? Why? @ -[None] What meds were considered but not given or refused? Why? @ -[None] Did you discuss the management of the patient with other professionals (professionals i.e. , PA, POURED WALL FOREMAN, lab, RT, psych nurse, director social, assistant commissioner, teacher, dispatch officer, correctional casework specialist)? Give summary @ -[No] Was smoking cessation discussed for >3mins.? @ -[No] Was critical care preformed (if so, how long)? @ -[No] Were there social determinants of health that impacted care today? How? (Homelessness, low income, unemployed, alcoholism, drug addiction, transportation, low edu. Level, literacy, decrease access to med. care, longterm, rehab)? @ -[No] Was there de-escalation of care discussed even if they declined (Discuss DNR or withdrawal of care, Hospice)? DNR status @ -[No] What co-morbidities impacted this encounter? (DM, HTN, Smoking, COPD, CAD, Cancer, CVA, ARF, Chemo, Hep., AIDS, mental health diagnosis, sleep apnea, morbid obesity)? @ -None Was patient admitted / discharged? Hospital course, mention meds given and route, prescriptions, significant lab abnormalities, going to OR and other pertinent info. @ -This is a 32-year-old male with history of opioid and benzodiazepine use presenting for help with detox. Vital signs within acceptable limits. Laboratory studies unremarkable. Patient looks well, no tremors-he is not currently undergoing acute withdrawal. Patient will be discharged with hydroxyzine for anxiety with panic attacks and Zofran for nausea. Instructed to not drink or take benzodiazepines while taking hydroxyzine. Spoke with father and patient in detail about return parameters. Undiagnosed new problem with uncertain prognosis? @ -[No] Drug Therapy requiring intensive monitoring for toxicity (Heparin, Nitro, Insulin, Cardizem)? @ -[No] Were any procedures done? @ -[No] Diagnosis/symptom? @ -[default] Acute, or Chronic, or Acute on Chronic? @ -desire for detoxification Uncomplicated (without systemic symptoms) or Complicated (systemic symptoms)? @ -Uncomplicated Side effects of treatment? @ -[No] Exacerbation, Progression, or Severe Exacerbation? @ -[No] Poses a threat to life or bodily function? How? (Chest pain, USA, VT, pneumonia, PE, COPD, DKA, ARF, appy, cholecystitis, CVA, Diverticulitis, Homicidal, Suicidal, threat to staff... and all critical care pts) @ -[No] Dr. Alaniz is my attending. - Lab Data Result diagrams: 09/03/22 15:44 09/03/22 16:25 Lab Results 09/03/22 09/03/22 09/03/22 Range/Units 15:44 15:44 16:25 WBC 9.0 (3.8-10.6) k/uL RBC 5.34 (4.30-5.90) m/uL Hgb 15.3 (13.0-17.5) gm/dL Hct 47.1 (39.0-53.0) % MCV 88.0 (80.0-100.0) fL MCH 28.6 (25.0-35.0) pg MCHC 32.5 (31.0-37.0) g/dL RDW 13.4 (11.5-15.5) % Plt Count 328 (150-450) k/uL MPV 7.4 Neutrophils % 46 % Lymphocytes % 38 % Monocytes % 8 % Eosinophils % 7 % Basophils % 1 % Neutrophils # 4.1 (1.3-7.7) k/uL Lymphocytes # 3.4 (1.0-4.8) k/uL Monocytes # 0.7 (0-1.0) k/uL Eosinophils # 0.6 (0-0.7) k/uL Basophils # 0.1 (0-0.2) k/uL Sodium 138 (137-145) mmol/L Potassium 4.5 (3.5-5.1) mmol/L Chloride 106 (98-107) mmol/L Carbon Dioxide 26 (22-30) mmol/L Anion Gap 6 mmol/L BUN 9 (9-20) mg/dL Creatinine 0.67 (0.66-1.25) mg/dL Est GFR (CKD-EPI)AfAm >90 (>60 ml/min/1.73 sqM) Est GFR (CKD-EPI)NonAf >90 (>60 ml/min/1.73 sqM) Glucose 102 H (74-99) mg/dL Calcium 9.1 (8.4-10.2) mg/dL Total Bilirubin 0.6 (0.2-1.3) mg/dL AST 38 (17-59) U/L ALT 70 H (4-49) U/L Alkaline Phosphatase 64 (38-126) U/L Total Protein 6.8 (6.3-8.2) g/dL Albumin 4.1 (3.5-5.0) g/dL Urine Color Yellow Urine Appearance Clear (Clear) Urine pH 5.0 (5.0-8.0) Ur Specific [place] 1.016 (1.001-1.035) Urine Protein Negative (Negative) Urine Glucose (UA) Negative (Negative) Urine Ketones Negative (Negative) Urine Blood Negative (Negative) Urine Nitrite Negative (Negative) Urine Bilirubin Negative (Negative) Urine Urobilinogen <2.0 (<2.0) mg/dL Ur Leukocyte Esterase Negative (Negative) Disposition Clinical Impression: Opioid use, Benzodiazepine abuse, Desire for detoxification Disposition: HOME SELF-CARE Condition: Good Instructions (If sedation given, give patient instructions): Benzodiazepine Abuse (ED), Opioid Withdrawal (ED) Additional Instructions: Take medication as directed. Follow-up with primary care provider in one to 2 days. Return to the emergency department if you experience new, concerning, or worsening symptoms. Prescriptions: hydrOXYzine HCL [Atarax] 25 mg PO TID PRN #12 tab PRN Reason: Anxiety Ondansetron Odt [Zofran Odt] 4 mg PO Q8HR PRN #10 tab PRN Reason: Nausea Is patient prescribed a controlled substance at d/c from ED?: No Referrals: None,Stated [Primary Care Provider] - 1-2 days
== END 2022-09-03 17:49 | disposition home or self-care (01) ==
LOC: EC 14:44
DX: F11.90 Opioid use, unspecified, uncomplicated (principal); F13.10 Sedative, hypnotic or anxiolytic abuse, uncomplicated; F10.139 Alcohol abuse with withdrawal, unspecified; F41.9 Anxiety disorder, unspecified; F17.200 Nicotine dependence, unspecified, uncomplicated
CPT/HCPCS: 36415; 80053; 81003; 85025; 99284